=== PATIENT | male | born 1965 | race Caucasian/White ===

== ENCOUNTER → 2016-11-07 | Outpatient (CLI) | payer OTHER ==
[~2016-11-07] MED LIST: ALBUAER19 INH; ASPI81TA28 PO; ATOR-22 PO; CARV25TA2 PO; DILT1TAB50 PO; ENAL1TAB31 PO; FRS/40 PO; GLC/500 PO; HYDR100T12 PO; MAGN400T6 PO; METF500T PO; METH1TAB18 PO; MOME200A INH; POTA-65 PO; SNQ/25 PO
[2016-11-07 17:41] LABS: BLOOD UREA NITROGEN 15 mg/dl (7-18); BUN/CREATININE RATIO 12.8 (10-20); CALCIUM 9.3 mg/dl (8.5-10.1); CARBON DIOXIDE 28 mmol/L (21-32); CHLORIDE 105 mmol/L (98-107); GLUCOSE 209 mg/dl (70-99); SODIUM 141 mmol/L (136-145)
[2016-11-07 17:49] LABS: ESTIMATED AVERAGE GLUCOSE 148 mg/dl; HA1C FLAG Normal (Normal)
[2016-11-07 18:08] LABS: RATIO 16.3 mcg/mg (0-30.0)
== END | disposition home or self-care (01) ==
LOC: C.LABPVFM 15:33
PROVIDERS: ATTEND Family Medicine
DX: E11.40 Type 2 diabetes mellitus with diabetic neuropathy, unspecified (principal); L03.90 Cellulitis, unspecified

== ENCOUNTER → 2017-03-01 | Outpatient (CLI) | payer OTHER ==
[~2017-03-01] MED LIST changes: +GLIP2.5T11 PO; +HYDR-5688 PO; +IBUP-1050 PO; +NYSTCRE11 TOP; +TAMS0.4C38 PO; +VNTHFA/IN INH; +VSNOPS OPB
[2017-03-01 17:49] LABS: ALT/SGPT 37 U/L (12-78); AST/SGOT 17 U/L (15-37); BLOOD UREA NITROGEN 11 mg/dl (7-18); BUN/CREATININE RATIO 10.9 (10-20); CALCIUM 8.6 mg/dl (8.5-10.1); CARBON DIOXIDE 29 mmol/L (21-32); CHLORIDE 106 mmol/L (98-107); CREATININE 0.96 mg/dl (0.60-1.40); GLUCOSE 183 mg/dl (70-99); MAGNESIUM 1.9 mg/dl (1.8-2.4); POTASSIUM 3.8 mmol/L (3.5-5.1); SODIUM 141 mmol/L (136-145)
[2017-03-01 17:52] LABS: CHOLESTEROL/HDL RATIO 2.7
[2017-03-02 06:11] LABS: ESTIMATED AVERAGE GLUCOSE 171 mg/dl; HA1C FLAG Normal (Normal)
== END | disposition home or self-care (01) ==
LOC: C.LABPVFM 11:43
PROVIDERS: ATTEND Family Medicine
DX: E78.5 Hyperlipidemia, unspecified (principal); E11.40 Type 2 diabetes mellitus with diabetic neuropathy, unspecified; I50.32 Chronic diastolic (congestive) heart failure; E83.42 Hypomagnesemia; I11.0 Hypertensive heart disease with heart failure

== ENCOUNTER → 2017-03-15 | Outpatient (CLI) | payer OTHER ==
[~2017-03-15] VITALS: Ht 193 cm; Wt 171.4 kg
[~2017-03-15] MED LIST changes: -TAMS0.4C38 PO
[2017-03-15 12:58] VITALS: BP 189/94; PULSE 86; Ht 193 cm; Wt 171.4 kg
== END | disposition home or self-care (01) ==
LOC: C.NEUR 12:15
PROVIDERS: ATTEND Internal Medicine Pulmonary Disease
DX: G47.30 Sleep apnea, unspecified (principal); E66.01 Morbid (severe) obesity due to excess calories; J45.909 Unspecified asthma, uncomplicated

== ENCOUNTER → 2017-05-21 | Outpatient (CLI) | payer OTHER | END | disposition home or self-care (01) | LOC: C.LABSPEC 17:01 | PROVIDERS: ATTEND Urology | DX: N20.0 Calculus of kidney (principal) ==

== ENCOUNTER 2017-06-11 22:41 | Emergency (ER) | payer OTHER ==
[~2017-06-11] VITALS: Ht 193 cm; Wt 164.7 kg
[2017-06-11 22:50] VITALS: Ht 193 cm; Wt 164.7 kg
[2017-06-11] MEDS ORDERED: SODIUM CHLORIDE 0.9% 500ML 500 ML IV STA (23:46)
[2017-06-11] MEDS ORDERED: SODIUM CHLORIDE 0.9% 1000ML 1,000 ML IV STA (23:46)
--- NOTE | 2017-06-12 00:05 | EMERGENCY ROOM VISIT NOTE ---
History Report prepared by Geri: Beni Ledesma Under the Supervision of: Dr. Jayshree Schmitz M.D. First contact with patient: 23:30 Chief Complaint: LEG PAIN,LEG INJURY Stated Complaint: LT LEG PAIN, FELL OFF ROOF History of Present Illness The patient is a 52 year old male who presents to the Emergency Room with complaints of worsening, upper, left leg pain beginning two days ago. The patient states he was replacing the roof on his trailer, and he fell off the roof. He reports he landed on his left leg and laid there for 30 minutes. The patient notes it started to swell, and it is difficult for him to sit up or apply pressure to it. He states he is able to bend his knee backwards, but it is difficult for him to extend it. The patient reports he has a "black blotch" there. He notes he was evaluated earlier today and had a CAT scan performed by urology for kidney stones. The patient states he has to walk very carefully into the emergency department today as it is painful to extend the left leg. He reports he has a history of diabetes mellitus, and he takes Metformin and glipizide. The patient denies loss of bladder control, loss of bowel movement, and any other pain. Source of History: patient Onset: two days ago Position: leg (upper, left) Timing: worsening Modifying Factors (Worsening): other (pressure) Note: Denies: loss of bladder control, loss of bowel movement, and any other pain Review of Systems See HPI for pertinent positives & negatives. A total of 10 systems reviewed and were otherwise negative. Past Medical & Surgical Medical Problems: (1) Asthma (2) Diabetes (3) HTN (hypertension) (4) Kidney stones (5) Stomach problems Family History Diabetes mellitus Hypertension Social History Smoking Status: Never Smoker Alcohol Use: none Drug Use: none Marital Status: Housing Status: lives alone Occupation Status: employed Current/Historical Medications Scheduled Aspirin (Aspirin Ec), 81 MG PO DAILY Atorvastatin (Lipitor), 20 MG PO HS Carvedilol (Coreg), 25 MG PO BID Diltiazem HCl Coated Beads (Diltiazem HCl ER), 240 MG PO QAM Enalapril Maleate (Vasotec), 20 MG PO BID Furosemide (Lasix), 40 MG PO QAM Hydralazine Hcl (Apresoline), 100 MG PO TID Magnesium Oxide (Mag-Ox), 400 MG PO BID Metformin Hcl (Glucophage), 500 MG PO QAM Metformin Hcl (Glucophage), 1,000 MG PO QPM Methylphenidate Hcl (Methylphenidate Hcl Er), 36 MG PO QAM Mometasone Furoate-Formoterol (Dulera 200/5 Mcg), 2 PUFFS INH BID Potassium Chloride (Potassium Chloride ER), 20 MEQ PO BID Scheduled PRN Doxepin (Sinequan), 25 MG PO HS PRN for Sleep Allergies Coded Allergies: Iodinated Contrast Media (Verified Allergy, Mild, GI SYMPTOMS, 06/12/17) Shellfish Allergy (Verified Allergy, Mild, GI SYMPTOMS, 06/12/17) Bupropion (Verified Allergy, Unknown, Syncope, 06/12/17) Quetiapine (Verified Allergy, Unknown, Sleep Walking, 06/12/17) [place] (Verified Allergy, Unknown, GI SYMPTOMS, 06/12/17) Physical Exam Vital Signs Date Time Temp Pulse Resp B/P (MAP) Pulse Ox O2 Delivery O2 Flow Rate FiO2 06/12/17 01:58 36.7 85 18 142/60 95 06/11/17 22:50 37.3 82 16 188/91 94 Room Air Physical Exam Vital signs reviewed. General: Well-appearing 52 year old male, in no significant distress. Exam is markedly inhibited by body habitus. HEENT: No scleral icterus, PERRLA, neck supple. Atraumatic. Cardiovascular: Regular rate and rhythm, no extra sounds. Pulmonary: Clear to auscultation bilaterally, normal work of breathing. Abdomen: Soft, nontender, nondistended, positive bowel sounds. Musculoskeletal: Atraumatic, no peripheral edema. Tenderness to palpation over the left hamstring with hematoma noted. Tenderness with forward flexion of the left hip. Full ROM of the knee. Neurologic: Patient awake alert and oriented x 3 Skin: Warm, dry, no rash ecchymosis to the posterior left thigh as described above. Medical Decision & Procedures ER Provider Diagnostic Interpretation: Radiology results as stated below per my review and radiologist interpretation: CT LEFT KNEE: Lobular faint high density area within the medial hamstrings measuring around 1.5 x 2.7 x 4.8cm may represent hematoma, cannot exclude possibility of myotendinous injury, tearing. Mild associated surrounding edema, swelling No fracture, joint effusion or dislocation Radiologist: Luke Cohen MD Study ready at 0031 and initial results transmitted at 0118. Laboratory Results Test 06/12/17 00:08 Bedside Hemoglobin 12.9 g/dl (14.0-18.0) Bedside Hematocrit 38 % (42-52) Bedside Sodium 142 mEq/L (135-144) Bedside Potassium 4.1 mEq/L (3.3-5.0) Bedside Chloride 102 mEq/L (101-112) Bedside Total CO2 30 mEq/l (24-31) Anion Gap 15.0 mmol/L (16-25) Bedside Blood Urea Nitrogen 15 mg/dl (7-18) Bedside Creatinine 0.9 mg/dl (0.6-1.3) Bedside Glucose (other) 144 mg/dl (70-99) Bedside Ionized Calcium (Jany) 1.16 mmol/l (1.12-1.32) Laboratory results per my review. Medications Administered Medications (Trade) Dose Ordered Sig/Sriram Route Start Time Stop Time Status Last Admin Dose Admin Acetaminophen/ Hydrocodone Bitart ([place] 5/325mg Home Pack) 1 homepack UD ONCE PO 06/12/17 01:45 06/12/17 01:46 DC 06/12/17 02:01 1 HOMEPACK ED Course 2343: Past medical records reviewed. The patient was evaluated in room C08. A complete history and physical examination was performed. 2346: Ordered Sodium Chloride 1000 ml @ 200 mls/hr IV, Sodium Chloride 500 ml @ 999 mls/hr IV 0145: Ordered Hydrocodone Bitart/Acetaminophen 1 homepack PO 0151: Upon reevaluation, the patient appeared to have improvement of her symptoms. I discussed findings with him. He verbalized agreement of the treatment plan. The patient was discharged home. Medical Decision Differential diagnosis: Etiologies such as fracture, dislocation, neurovascular compromise, compartment syndrome, soft tissue injury, as well as others were entertained. This patient was evaluated and appeared to be in no significant distress. Physical examination reveals a large amount of ecchymosis and tenderness to the left hamstring region. Ecchymosis is largely at the distal end of the hamstring. The patient's symptoms are not consistent with a sciatica necessarily. CT scan of the left lower extremity reveals a likely hematoma and possibly a muscular tear. This would be consistent with the patient's presentation. Patient was given a knee immobilizer. He was given a prescription for Vicodin to be used as needed for significant pain. He will follow-up with orthopedic surgery and return to the emergency department for worsening of symptoms or any medical concerns. Impression Primary Impression: Left hamstring injury Additional Impression: Hematoma of left lower extremity Scribe Attestation The scribe's documentation has been prepared under my direction and personally reviewed by me in its entirety. I confirm that the note above accurately reflects all work, treatment, procedures, and medical decision making performed by me. Departure Information Dispostion Home / Self-Care Referrals Mima Melendrez M.D. Sensiba, Paul R., M.D. Forms HOME CARE DOCUMENTATION FORM, IMPORTANT VISIT INFORMATION Patient Instructions My [facility] Additional Instructions Diagnosis: Left leg hematoma, hamstring injury Wear knee immobilizer while on your feet. It maybe removed to shower. [place] 1-2 tabs every 6 hours as needed for severe pain. Do not drive or take tylenol with this medication. Ibuprofen 600 mg every 6 hours as needed for less severe pain. Ice and elevate. Follow up with Dr Womack of [facility] for reevaluation. Return to the ED for worsening of symptoms or any medical concerns. Problem Qualifiers
[2017-06-12 00:18] LABS: ISTAT CREATININE 0.9 mg/dl (0.6-1.3); ISTAT HEMOGLOBIN 12.9 g/dl (14.0-18.0); ISTAT IONIZED CALCIUM 1.16 mmol/l (1.12-1.32)
[2017-06-12] MEDS ORDERED: NORCO 5/325MG HOME PACK PO ONE (01:45)
[2017-06-12 01:58] VITALS: BP 142/60; PULSE 85; TEMP 36.7; O2SAT 95
--- NOTE | 2017-06-12 07:15 | DIAGNOSTIC IMAGING REPORT ---
L LOWER EXTREMITY WITHOUT CLINICAL HISTORY: 52 years-old Male presenting with L posterior knee pain, hematoma, fall 2 days ago. TECHNIQUE: Multidetector CT of the left knee was performed without the use of intravenous contrast. IV contrast: None. A dose lowering technique was used consistent with the principles of ALARA (as low as reasonably achievable). COMPARISON: None. CT DOSE (mGy.cm): The estimated cumulative dose is 280.75 mGy.cm. FINDINGS: [employer] topogram: Unremarkable. Lobular hyperdense irregular collection within the semimembranous muscle. Small amount of adjacent interfascial fluid. The distal tendon insertion along the posterior medial tibia appears intact. Remainder of the muscles are intact and normal in appearance. Diffuse subcutaneous edema noted above the knee. Knee joint congruent. No effusion. No fracture or malalignment. No significant degenerative change. IMPRESSION: Lobular hyperdense collection within one of the hamstring muscles consistent with intramuscular hematoma. A myotendinous injury or partial tear of the muscle cannot be excluded. However, no complete disruption of the distal tendon. Electronically signed by: Teddy Giles M.D. 06/12/2017 7:14 AM Dictated Date/Time: 06/12/2017 7:10 AM
[2017-06-19] MEDS ORDERED: GLIP2.5T11 PO (11:40)
[2017-06-19] MEDS ORDERED: NYSTCRE11 TOP (11:42)
[2017-06-19] MEDS ORDERED: VNTHFA/IN INH (11:42)
[2017-06-19] MEDS ORDERED: HYDR-5688 PO (11:43)
[2017-06-19] MEDS ORDERED: IBUP-1050 PO (11:44)
[2017-06-19] MEDS ORDERED: VSNOPS OPB (11:45)
== END 2017-06-12 02:00 | disposition home or self-care (01) ==
LOC: C.EDB 22:42 → C.EDC 06-12 02:00
DX: S83.92XA Sprain of unspecified site of left knee, initial encounter (principal); S80.12XA Contusion of left lower leg, initial encounter; W17.89XA Other fall from one level to another, initial encounter; I10 Essential (primary) hypertension; E11.9 Type 2 diabetes mellitus without complications; J45.909 Unspecified asthma, uncomplicated; Z87.442 Personal history of urinary calculi; Z87.19 Personal history of other diseases of the digestive system; Z79.82 Long term (current) use of aspirin; Z79.84 Long term (current) use of oral hypoglycemic drugs; Z79.899 Other long term (current) drug therapy; Z88.8 Allergy status to other drugs, medicaments and biological substances; Z91.018 Allergy to other foods; Z91.041 Radiographic dye allergy status; Z83.3 Family history of diabetes mellitus; Z82.49 Family history of ischemic heart disease and other diseases of the circulatory system

== ENCOUNTER → 2017-06-11 | Outpatient (CLI) | payer OTHER ==
[~2017-06-11] MED LIST changes: -GLIP2.5T11 PO; -HYDR-5688 PO; -IBUP-1050 PO; -NYSTCRE11 TOP; -VNTHFA/IN INH; -VSNOPS OPB
--- NOTE | 2017-06-11 14:57 | DIAGNOSTIC IMAGING REPORT ---
CT OF THE ABDOMEN AND PELVIS WITHOUT CONTRAST CLINICAL HISTORY: Left-sided kidney stone. COMPARISON STUDY: CT of the abdomen and pelvis April 07, 2012 and KUB April 09, 2012. TECHNIQUE: Axial images of the abdomen and pelvis were obtained without IV contrast. Images were reviewed in the axial, sagittal, and coronal planes. A dose lowering technique was utilized adhering to the principles of ALARA. FINDINGS: Note is made of an 8 mm calculus within the lower pole of the left kidney and a 5 mm calculus within the lower pole of the right kidney. There are no ureteral calculi. No hydronephrosis is present. There is a punctate cortical calcification within the midpole the right kidney. There are no bladder calculi. Evaluation of the remainder of the abdomen and pelvis is suboptimal on this unenhanced exam. This study is also compromised by artifact related to body wall contacting the gantry. A 1.6 cm hypodense medial segment hepatic lesion likely reflects a cyst. This is likely benign. Unenhanced images of the spleen, adrenal glands and pancreas are unremarkable. There is no biliary or pancreatic ductal dilatation. No enlarged abdominal or pelvic lymph nodes are identified. There is no evidence for a bowel obstruction. The caliber of the appendix is normal. A radiodensity within the appendix is noted. There is no evidence for acute appendicitis. No suspicious skeletal lesions are present. IMPRESSION: 1. 8 mm left renal calculus and 5 mm right renal calculus. No ureteral calculi. No hydronephrosis. 2. No acute process within the abdomen or pelvis on unenhanced exam. 3. Study compromised by artifact related to body wall contacting the gantry. Electronically signed by: Marques Loera M.D. 06/11/2017 2:56 PM Dictated Date/Time: 06/11/2017 2:47 PM
--- NOTE | 2017-06-11 15:04 | DIAGNOSTIC IMAGING REPORT ---
KUB HISTORY: Z12.5 Encounter for prostate cancer screening [id number] COMPARISON: Abdomen and pelvis CT 06/11/2017. FINDINGS: The bowel gas pattern is unremarkable. There are no dilated loops of small bowel to suggest an obstruction. No change in the 8 mm stone within the lower pole of the left kidney and 5 mm stone within the lower pole the right kidney. No ureteral calculi identified. No radiopaque foreign bodies. No pneumoperitoneum or pneumatosis. IMPRESSION: Stable bilateral nephrolithiasis. Electronically signed by: Ortiz Dodd M.D. 06/11/2017 3:03 PM Dictated Date/Time: 06/11/2017 3:02 PM
== END | disposition home or self-care (01) ==
LOC: C.CTS 14:15
PROVIDERS: ATTEND Urology
DX: Z12.5 Encounter for screening for malignant neoplasm of prostate (principal); N20.0 Calculus of kidney

== ENCOUNTER → 2017-06-28 | Day surgery (SDC) | payer OTHER ==
[2017-06-19 11:46] VITALS: Ht 193 cm; Wt 175.4 kg
--- NOTE | 2017-06-19 12:37 | PAT Medication Instructions ---
"Service Date Jun 19, 2017. Current Home Medication List Albuterol Hfa (Ventolin Hfa), 2-4 PUFFS INH Q4H PRN for RN Aspirin (Aspirin Ec), 81 MG PO QAM Atorvastatin (Lipitor), 20 MG PO HS Carvedilol (Coreg), 25 MG PO BID Diltiazem HCl Coated Beads (Diltiazem HCl ER), 240 MG PO QAM Doxepin (Sinequan), 50 MG PO HS PRN for Sleep Enalapril Maleate (Vasotec), 20 MG PO BID Furosemide (Lasix), 40 MG PO QAM Glipizide (Glipizide Er), 1 TAB PO QAM Hydralazine Hcl (Apresoline), 100 MG PO TID Hydrocodone/Acetaminophen 5MG/325MG ([place] 5MG/325MG), 1 TABLET PO Q6H PRN for N Ibuprofen (Advil), 200-600 MG PO PRN Magnesium Oxide (Mag-Ox), 400 MG PO BID Metformin Hcl (Glucophage), 500 MG PO QAM Metformin Hcl (Glucophage), 1,000 MG PO QPM Methylphenidate Hcl (Methylphenidate Hcl Er), 36 MG PO QAM Nystatin/Triamcinolone (Mycogen || ), 1 DOSE TOP BID PRN for RN Potassium Chloride (Potassium Chloride ER), 20 MEQ PO BID Tetrahydrozoline Hcl (Ophth) (Visine), 1 DOSE OPB PRN Medication Instructions For Your Scheduled Surgery - Hold the following medications per your surgeon's instructions: Aspirin (Aspirin Ec), 81 MG PO QAM Ibuprofen (Advil), 200-600 MG PO PRN - Hold the following medications 24 hours prior to surgery: Enalapril Maleate (Vasotec), 20 MG PO BID Nystatin/Triamcinolone (Mycogen || ), 1 DOSE TOP BID PRN for RN - Hold the following medications 48 hours prior to surgery: Metformin Hcl (Glucophage), 500 MG PO QAM Metformin Hcl (Glucophage), 1,000 MG PO QPM - Hold the following medications the morning of surgery: Magnesium Oxide (Mag-Ox), 400 MG PO BID Furosemide (Lasix), 40 MG PO QAM Glipizide (Glipizide Er), 1 TAB PO QAM Enalapril Maleate (Vasotec), 20 MG PO BID Methylphenidate Hcl (Methylphenidate Hcl Er), 36 MG PO QAM Potassium Chloride (Potassium Chloride ER), 20 MEQ PO BID - Take the following medications the morning of surgery with a sip of water: Hydralazine Hcl (Apresoline), 100 MG PO TID Carvedilol (Coreg), 25 MG PO BID Diltiazem HCl Coated Beads (Diltiazem HCl ER), 240 MG PO QAM Hydrocodone/Acetaminophen 5MG/325MG ([place] 5MG/325MG), 1 TABLET PO Q6H PRN (can take up to four hours before surgery if needed) Tetrahydrozoline Hcl (Ophth) (Visine), 1 DOSE OPB PRN (if needed) Albuterol Hfa (Ventolin Hfa), 2-4 PUFFS INH Q4H PRN for RN (if needed, and bring with you on the day of surgery) - Take the following medications as scheduled the night before surgery: Magnesium Oxide (Mag-Ox), 400 MG PO BID Hydralazine Hcl (Apresoline), 100 MG PO TID Carvedilol (Coreg), 25 MG PO BID Doxepin (Sinequan), 50 MG PO HS PRN for Sleep Tetrahydrozoline Hcl (Ophth) (Visine), 1 DOSE OPB PRN (if needed) Atorvastatin (Lipitor), 20 MG PO HS Albuterol Hfa (Ventolin Hfa), 2-4 PUFFS INH Q4H PRN for RN (if needed) Potassium Chloride (Potassium Chloride ER), 20 MEQ PO BID If you have any questions please call us at [phone] or [phone] or [phone]"
[2017-06-19 12:38] LABS: MANUAL MICROSCOPIC REQUIRED? NO; REVIEW REQ? NO; URINE APPEARANCE CLEAR (CLEAR); URINE BILIRUBIN NEG (NEG); URINE COLOR YELLOW; URINE NITRITE NEG (NEG); URINE SPECIFIC GRAVITY 1.015 (1.000-1.030); UROBILINOGEN NEG (NEG)
[2017-06-19 12:46] LABS: HEMATOCRIT 39.9 % (42-52); MEAN CELL VOLUME 85.8 fL (80-100); MEAN CORPUSCULAR HEMOGLOBIN 28.4 pg (25-34); MEAN CORPUSCULAR HGB CONC 33.1 g/dl (32-36); PLATELET COUNT 177 K/uL (130-400); RED BLOOD COUNT 4.65 M/uL (4.7-6.1); WHITE BLOOD COUNT 6.04 K/uL (4.8-10.8)
--- NOTE | 2017-06-19 13:07 | DIAGNOSTIC IMAGING REPORT ---
TWO VIEW CHEST CLINICAL HISTORY: Preoperative examination. FINDINGS: PA and lateral chest radiographs are compared to study dated 04/09/2012. The heart is normal for projection and there is mild atherosclerotic calcification of the thoracic aorta. There is mild left basilar atelectasis. The lungs and pleural spaces are otherwise clear. There is no pneumothorax. The bony thorax appears intact. IMPRESSION: No active disease in the chest. Electronically signed by: Wade Wayne M.D. 06/19/2017 1:06 PM Dictated Date/Time: 06/19/2017 1:05 PM
[~2017-06-28] VITALS: Ht 193 cm; Wt 175.4 kg
[~2017-06-28] MED LIST changes: -ALBUAER19 INH; +ATROPINE SULFATE 0.1 MG/ML 5ML SYR IV PRN; +CIPROFLOXACIN 400MG / D5W IV SCH; +DEXAMETHASONE SOD INJ 4 MG/ML VIAL IV PRN; +DEXAMETHASONE SOD INJ 4 MG/ML VIAL ONE; +EpHEDrine SULFATE INJ 50 MG/ML AMP IV PRN; +FENTANYL CITRATE INJ 50 MCG/1 ML 2 ML VIAL IV PRN; +FENTANYL CITRATE INJ 50 MCG/1 ML 2 ML VIAL ONE; +GLIP2.5T11 PO; +HYDR-5688 PO; +IBUP-1050 PO; +KETOROLAC TROMETHAMINE 30 MG/ML VIAL IV. PRN; +LABETALOL HCL IV 5 MG/ML 20ML IV PRN; +LACTATED RINGER'S 1000ML 1,000 ML IV SCH; +LIDOCAINE HCL 2% 2 ML VIAL (20MG/ML) ONE; +METOCLOPRAMIDE HCL INJ 5 MG/ML 2 ML VIAL IV PRN; +MIDAZOLAM HCL 1 MG/ML 2ML VIAL ONE; -MOME200A INH; +MoRPHine SULFATE 10 MG/ML CARP/VIAL IV PRN; +NYSTCRE11 TOP; +ONDANSETRON INJ 2 MG/ML 2 ML VIAL IV PRN; +ONDANSETRON INJ 2 MG/ML 2 ML VIAL ONE; +PHENYLEPHRINE 100MCG/ML 5ML SYR IV PRN; +PROPOFOL IV EMULSION 10 MG/ML 20 ML VIAL IV ONE; +TAMS0.4C38 PO; +VNTHFA/IN INH; +VSNOPS OPB
--- NOTE | 2017-06-28 10:13 | DIAGNOSTIC IMAGING REPORT ---
KUB HISTORY: N20.0 Kidney stone on left side TO BE DONE EITHER THE NIGHT BEFORE COMPARISON: KUB 06/11/2017. FINDINGS: The bowel gas pattern is unremarkable. There are no dilated loops of small bowel to suggest an obstruction. Stable 8 mm stone within the lower pole of the left kidney. No ureteral calculi. The 5 mm stone within the lower pole of the right kidney is partially obscured by overlying bowel gas. No pneumoperitoneum or pneumatosis. IMPRESSION: Stable bilateral nephrolithiasis. No ureteral calculi. Electronically signed by: Ortiz Dodd M.D. 06/28/2017 10:12 AM Dictated Date/Time: 06/28/2017 10:10 AM
--- NOTE | 2017-06-28 12:03 | History & Physical Bridge - SC ---
H&P Re-Evaluation Bridge Note: I have examined the patient, reviewed the History & Physical and in the interval since the performance of the History & Physical I have noted the following changes of clinical significance: Case cancelled due to patient on aspirin. Fluoroscopy completed to visualize stone to determine if ESWL possible. Was able to visualize stone with fluoroscopy but was difficult due to bowel gas and habitus.
[2017-06-28 12:14] VITALS: TEMP 36.8
[2017-06-28 12:24] VITALS: BP 161/90; PULSE 65; O2SAT 97
== END | disposition home or self-care (01) ==
LOC: X.SURG 10:27
PROVIDERS: ATTEND Urology
DX: Z53.09 Procedure and treatment not carried out because of other contraindication (principal); N13.30 Unspecified hydronephrosis; N20.0 Calculus of kidney; M19.90 Unspecified osteoarthritis, unspecified site; J45.909 Unspecified asthma, uncomplicated; F90.9 Attention-deficit hyperactivity disorder, unspecified type; E11.65 Type 2 diabetes mellitus with hyperglycemia; E11.40 Type 2 diabetes mellitus with diabetic neuropathy, unspecified; E78.5 Hyperlipidemia, unspecified; I10 Essential (primary) hypertension; E83.42 Hypomagnesemia; E66.01 Morbid (severe) obesity due to excess calories; I25.2 Old myocardial infarction; Z86.73 Personal history of transient ischemic attack (TIA), and cerebral infarction without residual deficits; Z80.8 Family history of malignant neoplasm of other organs or systems; Z79.82 Long term (current) use of aspirin

== ENCOUNTER → 2017-07-05 | Day surgery (SDC) | payer OTHER ==
[2017-07-02 13:27] VITALS: Ht 193 cm; Wt 175.4 kg
--- NOTE | 2017-07-04 17:38 | DIAGNOSTIC IMAGING REPORT ---
KUB CLINICAL HISTORY: N20.0 Nephrolithiasis COMPARISON STUDY: 06/28/2017 FINDINGS: There is no pathologic bowel dilatation. There is a 9 mm lower pole left renal calculus. No ureteral calculi are visualized on conventional radiographic imaging. The patient's reported right renal calculus is not visualized the current study. IMPRESSION: 1. 9 mm lower pole left renal calculus 2. The patient's previously reported right renal calculus is obscured by overlying bowel and fecal material 3. No evidence of pathologic bowel dilatation Electronically signed by: Jose F Arroyo M.D. 07/04/2017 5:37 PM Dictated Date/Time: 07/04/2017 5:33 PM
[~2017-07-05] VITALS: Ht 193 cm; Wt 175.4 kg
[~2017-07-05] MED LIST changes: +CIPROFLOXACIN / D5W 400 MG IV SCH; -CIPROFLOXACIN 400MG / D5W IV SCH; -DEXAMETHASONE SOD INJ 4 MG/ML VIAL IV PRN; +EpHEDrine SULFATE 50MG/5ML SYR ONE; -LABETALOL HCL IV 5 MG/ML 20ML IV PRN; -METOCLOPRAMIDE HCL INJ 5 MG/ML 2 ML VIAL IV PRN; -MoRPHine SULFATE 10 MG/ML CARP/VIAL IV PRN; +OXYCODONE/ACETAMINOPHEN 5-325 TAB PO PRN; -PHENYLEPHRINE 100MCG/ML 5ML SYR IV PRN; +SUCCINYLCHOLINE CHLORIDE 20 MG/ML 10 ML VIAL IV ONE
--- NOTE | 2017-07-05 06:58 | History & Physical Bridge Note ---
H&P Re-Evaluation Bridge Note: I have examined the patient, reviewed the History & Physical and in the interval since the performance of the History & Physical I have noted the following changes of clinical significance: No changes noted, left side for ESWL
--- NOTE | 2017-07-05 07:56 | Discharge Instructions ---
Discharge Instructions Date of Service Jul 05, 2017. Admission Reason for Admission: Stones Discharge Discharge Diagnosis / Problem: L renal stone s/p ESWL Discharge Goals Goal(s): Improve function, Improve disease control, Therapeutic intervention Activity Recommendations Activity Limitations: as noted below Lifting Limitations: no more than 25 pounds, gradually increase as tolerated Exercise/Sports Limitations: rest today, gradually increase as tolerated May Resume Sexual Activity: when tolerated Shower/Bathe: no limitations Driving or Machine Use: resume 1 day after discharge . Instructions / Follow-Up Instructions / Follow-Up Follow-up in office as planned with KUB Xray before visit Discharge Diet Recommended Diet: Regular Diet (good fluid intake) Procedures Procedures Performed: Left Extracorporeal Shock Wave Lithotripsy - Renal Pending Studies Studies pending at discharge: no Medical Emergencies . Who to Call and When: Medical Emergencies: If at any time you feel your situation is an emergency, please call 911 immediately. . Non-Emergent Contact Non-Emergency issues call your: Urologist Call Non-Emergent contact if: you have a fever, temperature is above 101, your pain is not controlled, your pain is worsening, your pain is unusual for you, your pain is concerning you, you have any medication questions . . "Provider Documentation" section prepared by Efren Cline. . VTE Core Measure Inpt VTE Proph given/why not?: SCD's [place] Drug Monitoring Program Search Results: patient reviewed within database, see additional documentation (last narcotic Rx in Nov 2016)
--- NOTE | 2017-07-05 07:58 | [facility] Post Operative Brief Note ---
Immediate Operative Summary Operative Date Jul 05, 2017. Pre-Operative Diagnosis Left Renal Stone Post-Operative Diagnosis Same as pre-op Procedure(s) Performed Left Extracorporeal Shock Wave Lithotripsy - Renal Surgeon Dr. Kristi Cline [place] Technician Surgeon(s) None Estimated Blood Loss 0 mL Findings Good stone fragmentation on fluoro Specimens None Drains NA Anesthesia GAET Complication(s) None Disposition Recovery Room / PACU
--- NOTE | 2017-07-05 08:24 | OPERATIVE REPORT ---
DATE OF OPERATION: 07/05/2017 PREOPERATIVE DIAGNOSIS: Left 8 mm kidney stone. POSTOPERATIVE DIAGNOSIS: Left 8 mm kidney stone. PROCEDURE: Left-sided renal extracorporeal shockwave lithotripsy. SURGEON: Efren Cline MD. PRINTING SALES REPRESENTATIVE: None. ANESTHESIA: General anesthesia with endotracheal intubation due to body habitus. COMPLICATIONS: None. FINDINGS: Good stone fragmentation on fluoroscopy intraoperatively. DETAILS OF PROCEDURE: The patient was brought to the litho suite. He was correctly identified and the stone was visualized on his most recent x-rays. After the correct time out was performed the patient was positioned over the therapy head. An adequate level of anesthesia was administered. The extracorporeal shockwave lithotripsy treatment was then commenced. Please see the [facility] Management sheet for complete treatment summary. After completion of the procedure the patient was taken to the recovery room in stable condition. I attest to the content of the Intraoperative Record and any orders documented therein. Any exception s are noted below.
[2017-07-05 09:05] VITALS: TEMP 36.7
[2017-07-05 09:34] VITALS: BP 155/82; PULSE 56; O2SAT 96
--- NOTE | 2017-07-05 09:36 | Anesthesia Progress Nt - [facility] ---
Anesthesia Post Op Note Date & Time Jul 05, 2017 at 09:35 Vital Signs Pain Intensity: 0 Vital Signs Past 12 Hours Date Time Temp Pulse Resp B/P (MAP) Pulse Ox O2 Delivery O2 Flow Rate FiO2 07/05/17 09:05 36.7 58 16 145/77 (99) 95 Room Air 07/05/17 08:40 51 Room Air 07/05/17 07:54 36.3 61 20 91/43 96 Diffusion Mask 5 07/05/17 06:41 37.0 62 22 159/93 (115) 94 Room Air Notes Mental Status: alert / awake / arousable, participated in evaluation Pt Amnestic to Procedure: Yes Nausea / Vomiting: adequately controlled Pain: adequately controlled Airway Patency, RR, SpO2: stable & adequate BP & HR: stable & adequate Hydration State: stable & adequate Anesthetic Complications: no major complications apparent Awake, doing well. VSS. Ready for d/c
== END | disposition home or self-care (01) ==
LOC: X.SURG 05:56
PROVIDERS: ATTEND Urology
DX: N20.0 Calculus of kidney (principal); I11.0 Hypertensive heart disease with heart failure; I50.32 Chronic diastolic (congestive) heart failure; E11.40 Type 2 diabetes mellitus with diabetic neuropathy, unspecified; E78.5 Hyperlipidemia, unspecified; J45.909 Unspecified asthma, uncomplicated; G47.30 Sleep apnea, unspecified; E66.01 Morbid (severe) obesity due to excess calories; F80.9 Developmental disorder of speech and language, unspecified; Z87.891 Personal history of nicotine dependence; Z79.82 Long term (current) use of aspirin; Z79.84 Long term (current) use of oral hypoglycemic drugs; Z79.899 Other long term (current) drug therapy

== ENCOUNTER → 2017-11-26 | Outpatient (CLI) | payer OTHER ==
[~2017-11-26] MED LIST changes: -ATROPINE SULFATE 0.1 MG/ML 5ML SYR IV PRN; -CIPROFLOXACIN / D5W 400 MG IV SCH; -DEXAMETHASONE SOD INJ 4 MG/ML VIAL ONE; -EpHEDrine SULFATE 50MG/5ML SYR ONE; -EpHEDrine SULFATE INJ 50 MG/ML AMP IV PRN; -FENTANYL CITRATE INJ 50 MCG/1 ML 2 ML VIAL IV PRN; -FENTANYL CITRATE INJ 50 MCG/1 ML 2 ML VIAL ONE; -KETOROLAC TROMETHAMINE 30 MG/ML VIAL IV. PRN; -LACTATED RINGER'S 1000ML 1,000 ML IV SCH; -LIDOCAINE HCL 2% 2 ML VIAL (20MG/ML) ONE; -MIDAZOLAM HCL 1 MG/ML 2ML VIAL ONE; -ONDANSETRON INJ 2 MG/ML 2 ML VIAL IV PRN; -ONDANSETRON INJ 2 MG/ML 2 ML VIAL ONE; -OXYCODONE/ACETAMINOPHEN 5-325 TAB PO PRN; -PROPOFOL IV EMULSION 10 MG/ML 20 ML VIAL IV ONE; -SUCCINYLCHOLINE CHLORIDE 20 MG/ML 10 ML VIAL IV ONE; -TAMS0.4C38 PO
== END | disposition home or self-care (01) ==
LOC: C.LABPVFM 13:16
PROVIDERS: ATTEND Internal Medicine Cardiovascular Disease
DX: I10 Essential (primary) hypertension (principal); I50.32 Chronic diastolic (congestive) heart failure; E83.42 Hypomagnesemia

== ENCOUNTER → 2017-12-26 | Outpatient (CLI) | payer OTHER ==
[2017-12-26 13:13] LABS: ALBUMIN 3.6 gm/dl (3.4-5.0); ALT/SGPT 39 U/L (12-78); AST/SGOT 17 U/L (15-37); BLOOD UREA NITROGEN 15 mg/dl (7-18); CALCIUM 8.9 mg/dl (8.5-10.1); CARBON DIOXIDE 26 mmol/L (21-32); CHOLESTEROL 92 mg/dl (0-200); GLUCOSE 172 mg/dl (70-99); POTASSIUM 3.8 mmol/L (3.5-5.1); SODIUM 140 mmol/L (136-145)
[2017-12-26 13:16] LABS: ALKALINE PHOSPHATASE 86 U/L (45-117); LDL CHOLESTEROL CALCULATED 35 mg/dl
== END | disposition home or self-care (01) ==
LOC: C.LABPVFM 09:59
PROVIDERS: ATTEND Family Medicine
DX: N13.30 Unspecified hydronephrosis (principal); F90.9 Attention-deficit hyperactivity disorder, unspecified type; I10 Essential (primary) hypertension; I50.32 Chronic diastolic (congestive) heart failure; E78.5 Hyperlipidemia, unspecified; E11.40 Type 2 diabetes mellitus with diabetic neuropathy, unspecified

== ENCOUNTER 2018-04-20 21:15 | Emergency (ER) | payer OTHER ==
[~2018-04-20] VITALS: Ht 193 cm; Wt 163.5 kg
[2018-04-20 21:18] VITALS: TEMP 37.3; Ht 193 cm; Wt 163.5 kg
[2018-04-20] MEDS ORDERED: CEFTRIAXONE SOD INJ 1 GM ADDVIAL IV STA (21:55)
[2018-04-20] MEDS ORDERED: KETOROLAC TROMETHAMINE 30 MG/ML VIAL IV STA (21:55)
[2018-04-20] MEDS ORDERED: DIPHTHERIA/TETANUS/PERTUSSIS 0.5 ML SYR/VIAL IM. ONE (22:00)
[2018-04-20 22:31] LABS: BASO % 0.2 %; BASO ABS # 0.02 K/uL (0-0.2); EOS % 2.8 %; EOS ABS # 0.24 K/uL (0-0.5); HEMATOCRIT 41.8 % (42-52); HEMOGLOBIN 13.8 g/dL (14.0-18.0); IG# 0.02 K/uL (0.00-0.02); LYMPH % 20.7 %; LYMPH ABS # 1.76 K/uL (1.2-3.4); MEAN CELL VOLUME 86.2 fL (80-100); MEAN CORPUSCULAR HEMOGLOBIN 28.5 pg (25-34); MEAN PLATELET VOLUME 10.1 fL (7.4-10.4); MONO % 5.5 %; MONO ABS # 0.47 K/uL (0.11-0.59); NEUT % 70.6 %; NEUT ABS # 6.01 K/uL (1.4-6.5); PLATELET COUNT 172 K/uL (130-400); RED CELL DISTRIBUTION WIDTH CV 14.4 % (11.5-14.5); RED CELL DISTRIBUTION WIDTH SD 44.7 fL (36.4-46.3); WHITE BLOOD COUNT 8.52 K/uL (4.8-10.8)
[2018-04-20 22:48] LABS: CALCIUM 8.6 mg/dl (8.5-10.1); CREATININE 1.08 mg/dl (0.60-1.40); POTASSIUM 3.5 mmol/L (3.5-5.1)
--- NOTE | 2018-04-20 22:53 | DIAGNOSTIC IMAGING REPORT ---
LEFT BUTTOCK ULTRASOUND CLINICAL HISTORY: Left buttock infection, ? abscess. COMPARISON STUDY: No previous studies for comparison. FINDINGS: Sonography of the superior left buttock at site of swelling demonstrates a tiny 0.8 x 0.5 x 0.7 cm subcutaneous hypoechoic focus. This contains no color flow. No additional fluid collections are present. There is an apparent tract which extends from this collection to the skin. IMPRESSION: 8 mm subcutaneous hypoechoic fluid collection of the left buttock with tract that extends from the skin to this fluid collection. This may reflect a tiny abscess or hematoma. Electronically signed by: Marques Loera M.D. 04/20/2018 10:52 PM Dictated Date/Time: 04/20/2018 10:50 PM
[2018-04-20] MEDS ORDERED: SULF800T23 PO (23:05)
[2018-04-20] MEDS ORDERED: CEPH500C2 PO (23:05)
[2018-04-20 23:12] VITALS: BP 176/68; PULSE 78; O2SAT 95
[2018-04-20] MEDS ORDERED: CEPHALEXIN 500MG HOME PACK 1 EA BTL PO ONE (23:15)
[2018-04-20] MEDS ORDERED: SEPTRA DS HOME PACK 1 EA VIAL PO ONE (23:15)
--- NOTE | 2018-04-20 23:22 | EMERGENCY ROOM VISIT NOTE ---
History First contact with patient: 21:50 Chief Complaint: BITE Stated Complaint: BIT BY TIC OR SPIDER History of Present Illness The patient is a 53 year old male who presents to the Emergency Room with complaints of insect bite to his left butt cheek for the past day is gotten more painful and sore for him. He is unsure what bit him. Patient does not check his blood sugars. Patient denies chest pain, dyspnea, fever, chills, nausea, vomiting, abdominal pain, drainage from the site. Tetanus is not current. Patient's reaction to penicillin as a mild rash. He has taken Keflex without difficulties in the past. Review of Systems An 10 system review of systems was completed with positives and pertinent negatives listed in the HPI. Past Medical/Surgical History Medical Problems: (1) Asthma (2) Diabetes (3) HTN (hypertension) (4) Kidney stones (5) Stomach problems Family History Diabetes mellitus Hypertension Social History Smoking Status: Never Smoker Alcohol Use: none Drug Use: none Marital Status: Housing Status: lives alone Occupation Status: employed Current/Historical Medications Scheduled Aspirin (Aspirin Ec), 81 MG PO QAM Atorvastatin (Lipitor), 20 MG PO HS Carvedilol (Coreg), 25 MG PO BID Cephalexin Monohydrate (Keflex), 500 MG PO QID Diltiazem HCl Coated Beads (Diltiazem HCl ER), 240 MG PO QAM Enalapril Maleate (Vasotec), 20 MG PO BID Glipizide (Glipizide Er), 2.5 MG PO QAM Hydralazine Hcl (Apresoline), 100 MG PO TID Ibuprofen (Advil), 200-600 MG PO PRN Magnesium Oxide (Mag-Ox), 400 MG PO BID Metformin Hcl (Glucophage), 500 MG PO QAM Metformin Hcl (Glucophage), 1,000 MG PO QPM Methylphenidate Hcl (Methylphenidate Hcl Er), 36 MG PO QAM Potassium Chloride (Potassium Chloride ER), 20 MEQ PO BID Sulfa/Trimethoprim (Bactrim Ds 800MG/160MG), 1 TAB PO BID Tetrahydrozoline Hcl (Ophth) (Visine), 1 DROP OPB PRN Scheduled PRN Albuterol Hfa (Ventolin Hfa), 2-4 PUFFS INH Q4H PRN for SOB/Wheezing Furosemide (Lasix), 40 MG PO QAM PRN for water retention Physical Exam Vital Signs Date Time Temp Pulse Resp B/P (MAP) Pulse Ox O2 Delivery O2 Flow Rate FiO2 04/20/18 23:12 78 176/68 95 04/20/18 23:11 78 20 176/68 95 Room Air 04/20/18 21:18 37.3 83 18 200/81 93 Room Air Physical Exam VITALS: Vitals are noted on the nurse's note and reviewed by myself. Vital signs hypertensive. GENERAL: White male, in no acute distress, nondiaphoretic, well-developed well- nourished. SKIN: Left buttock with insect bite with surrounding erythema 5 cm x 4 cm with induration without palpable abscess. No lymphangitis. The rest of the skin was without rashes, erythema, edema, or bruising. There is no tenting of the skin. Capillary reflex less than 2 seconds. HEAD: Normocephalic atraumatic. EARS: External auditory canals clear EYES: Pupils equal round and reactive to light and accommodation. Conjunctivae without injection, sclerae without icterus. Extraocular movements intact. NOSE: Patent, turbinates without inflammation or discharge. MOUTH: Mucous membranes moist. Pharynx without erythema or exudate. Uvula midline. Airway patent. Tongue does not deviate. NECK: Supple without nuchal rigidity. No lymphadenopathy. No thyromegaly. Cervical spine is nontender. No JVD. HEART: Regular rate and rhythm without murmurs gallops or rubs. LUNGS: Clear to auscultation bilaterally without wheezes, rales or rhonchi. No retractions or accessory muscle use. ABDOMEN: Positive bowel sounds x 4. Normal tympanic percussion. Soft, protuberant, obese, nontender, without masses or organomegaly. Fox sign negative. No guarding or rebound tenderness. No CVA tenderness Buttock exam: Left buttock with insect bite with surrounding erythema 5 cm x 4 cm with induration without palpable abscess. No lymphangitis. MUSCULOSKELETAL: No muscle atrophy, erythema, noted. NEURO: Patient was alert and oriented to person place and time. Normal sensation to light and sharp touch. No focal neurological deficits. Medical Decision & Procedures Laboratory Results 04/20/18 22:20 Red Blood Count 4.85, Mean Corpuscular Volume 86.2, Mean Corpuscular Hemoglobin 28.5, Mean Corpuscular Hemoglobin Concent 33.0, Mean Platelet Volume 10.1, Neutrophils (%) (Auto) 70.6, Lymphocytes (%) (Auto) 20.7, Monocytes (%) (Auto) 5.5, Eosinophils (%) (Auto) 2.8, Basophils (%) (Auto) 0.2, Neutrophils # (Auto) 6.01, Lymphocytes # (Auto) 1.76, Monocytes # (Auto) 0.47, Eosinophils # (Auto) 0.24, Basophils # (Auto) 0.02 04/20/18 22:20 Test 04/20/18 22:20 White Blood Count 8.52 K/uL (4.8-10.8) Red Blood Count 4.85 M/uL (4.7-6.1) Hemoglobin 13.8 g/dL (14.0-18.0) Hematocrit 41.8 % (42-52) Mean Corpuscular Volume 86.2 fL (80-100) Mean Corpuscular Hemoglobin 28.5 pg (25-34) Mean Corpuscular Hemoglobin Concent 33.0 g/dl (32-36) Platelet Count 172 K/uL (130-400) Mean Platelet Volume 10.1 fL (7.4-10.4) Neutrophils (%) (Auto) 70.6 % Lymphocytes (%) (Auto) 20.7 % Monocytes (%) (Auto) 5.5 % Eosinophils (%) (Auto) 2.8 % Basophils (%) (Auto) 0.2 % Neutrophils # (Auto) 6.01 K/uL (1.4-6.5) Lymphocytes # (Auto) 1.76 K/uL (1.2-3.4) Monocytes # (Auto) 0.47 K/uL (0.11-0.59) Eosinophils # (Auto) 0.24 K/uL (0-0.5) Basophils # (Auto) 0.02 K/uL (0-0.2) RDW Standard Deviation 44.7 fL (36.4-46.3) RDW Coefficient of Variation 14.4 % (11.5-14.5) Immature Granulocyte % (Auto) 0.2 % Immature Granulocyte # (Auto) 0.02 K/uL (0.00-0.02) Anion Gap 8.0 mmol/L (3-11) Est Creatinine Clear Calc Drug Dose 134.4 ml/min Estimated GFR () 91.6 Estimated GFR (Non- 79.0 BUN/Creatinine Ratio 13.3 (10-20) Calcium Level 8.6 mg/dl (8.5-10.1) Medications Administered Medications (Trade) Dose Ordered Sig/Sriram Route Start Time Stop Time Status Last Admin Dose Admin Ceftriaxone Sodium (Rocephin Inj) 1 gm NOW STAT IV 04/20/18 21:55 04/20/18 21:57 DC 04/20/18 22:51 1 GM Ketorolac Tromethamine (Toradol Inj) 10 mg NOW STAT IV 04/20/18 21:55 04/20/18 21:57 DC 04/20/18 22:52 10 MG Diphtheria/ Pertussis/Tetanus Vacc (Adacel Inj) 0.5 ml ONCE ONCE IM. 04/20/18 22:00 04/20/18 22:01 DC 04/20/18 22:53 0.5 ML ED Course Prior records reviewed and summarized as above. Triage Nursing notes reviewed. The patient's history was concerning for swelling and redness of the skin. Differential diagnosis: Etiologies such as cellulitis, abscess, MRSA infection, DVT, necrotizing fasciitis, dermatitis, drug eruption, as well as others were entertained.. Physical examination: As above ER treatment provided: Rocephin, Toradol, home pack Keflex and Bactrim On reassessment the patient felt better. Diagnostics interpreted by me: The labs revealed hyperglycemia without DKA. No leukocytosis Imaging studies: LEFT BUTTOCK ULTRASOUND CLINICAL HISTORY: Left buttock infection, ? abscess. COMPARISON STUDY: No previous studies for comparison. FINDINGS: Sonography of the superior left buttock at site of swelling demonstrates a tiny 0.8 x 0.5 x 0.7 cm subcutaneous hypoechoic focus. This contains no color flow. No additional fluid collections are present. There is an apparent tract which extends from this collection to the skin. IMPRESSION: 8 mm subcutaneous hypoechoic fluid collection of the left buttock with tract that extends from the skin to this fluid collection. This may reflect a tiny abscess or hematoma. Electronically signed by: Marques Loera M.D. This appears to be Cellulitis with possibly developing abscess.patient was started on antibiotics. Patient was counseled on his blood pressure and blood sugar. He was advised to take medications as directed and to sit on a donut cushion to help subside some of the pain. He is advised to return to the ER immediately for fevers, spreading infection, vomiting, pain, worsening signs or symptoms or as needed. He was advised to follow-up with family care in 2 days. By the evaluation outlined above emergent etiologies such as necrotizing fasciitis, DVT, as well as others were deemed relatively unlikely. The pt informed about the findings as listed above. All questions were answered and pleased with the treatment. Return instructions were outlined and the patient was discharged in stable condition. Outpatient prescription management: Keflex, Bactrim Referral: The patient was referred back to primary care physician for follow-up in 2 to 3 days for a recheck of the current condition. Case reviewed with my attending The chart was completed utilizing [employer] voice recognition software. Grammatical errors, random word insertions, pronoun errors, and incomplete sentences are an occassional consequence of this system due to software limitations, ambient noise, and hardware issues. Any formal questions or concerns about the content, text, or information contained within the body of this dictation should be directly addressed to the physician assistant floor covering printer for clarification. Medical Decision As above Medication Reconcilliation Current Medication List: was personally reviewed by me Blood Pressure Screening Patient's blood pressure: Elevated blood pressure Blood pressure disposition: Referred to PCP Impression Primary Impression: Hyperglycemia due to type 2 diabetes mellitus Additional Impressions: Infected insect bite of buttock Anemia Departure Information Dispostion Home / Self-Care Condition GOOD Prescriptions Sulfa/Trimethoprim (Bactrim Ds 800MG/160MG) Tab 1 TAB PO BID for 9 Days, #18 TAB Prov: Glo Rose PA-C 04/20/18 Cephalexin Monohydrate (KEFLEX) 500 Mg Cap 500 MG PO QID for 9 Days, #36 CAP Prov: Glo Rose PA-C 04/20/18 Forms HOME CARE DOCUMENTATION FORM, Work Instructions, Return To Work: 2 days IMPORTANT VISIT INFORMATION Patient Instructions My [facility], ED Sting Bite Insect Infec Additional Instructions Your blood pressure is elevated today. Follow-up with family care doctor for this. Monitor your blood sugar. It was high today. Cephalexin(Keflex) 500mg: Take one pill four times daily for 10 days for your skin infection. All antibiotics can cause diarrhea. If this occurs and you feel worse or it does not resolve in 1-2 days follow up with your doctor or return to the Emergency Department as this could be signs of serious underlying problems. Any medication can cause an allergic reaction, stop the pills immediately and return to the ER for rash, hives, breathing difficulties, or swelling. Trimethoprim-Sulfamethoxazole(Bactrim DS): Take one pill twice daily for 10 days for your skin infection. All antibiotics can cause diarrhea. If this occurs and you feel worse or it does not resolve in 1-2 days follow up with your doctor or return to the Emergency Department as this could be signs of serious underlying problems. Any medication can cause an allergic reaction, stop the pills immediately and return to the ER for rash, hives, breathing difficulties, or swelling. Ibuprofen(Motrin, Advil) may be used for fever or pain. Use 600mg every six hours as needed. Take with food. Avoid using more than 2400mg in a 24 hour period. Do not use 2400mg per day for more than three consecutive days without physician direction. Prolonged inappropriate use can lead to stomach upset or ulcers. (AND/OR) Acetaminophen(Tylenol) may be used for fever or pain. Use 1000mg every six hours as needed. Avoid using more than 3000mg in a 24 hour period. Warm compresses to the affected area 4 times daily for 15-20 minutes. Rest and drink plenty of fluids. Continue current medications. Return to the ER for severe pain, persistent fevers, spreading redness, or any worsening of your condition. Follow up with your primary physician within 2-3 days for a recheck of the current condition. Work Instructions Return To Work: 2 days Problem Qualifiers Primary Impression: Hyperglycemia due to type 2 diabetes mellitus Diabetes mellitus outplacement consultant insulin use: with outplacement consultant use Qualified Codes: E11.65 - Type 2 diabetes mellitus with hyperglycemia; Z79.4 - half-way ( current) use of insulin Additional Impressions: Infected insect bite of buttock Encounter type: initial encounter Qualified Codes: S30.860A - Insect bite ( nonvenomous) of lower back and pelvis, initial encounter; L08.9 - Local infection of the skin and subcutaneous tissue, unspecified; W57.XXXA - Bitten or stung by nonvenomous insect and other nonvenomous arthropods, initial encounter
== END 2018-04-20 23:30 | disposition home or self-care (01) ==
LOC: C.EDB 21:16
DX: E11.65 Type 2 diabetes mellitus with hyperglycemia (principal); S30.860A Insect bite (nonvenomous) of lower back and pelvis, initial encounter; W57.XXXA Bitten or stung by nonvenomous insect and other nonvenomous arthropods, initial encounter; L08.9 Local infection of the skin and subcutaneous tissue, unspecified; D64.9 Anemia, unspecified; Z23 Encounter for immunization; J45.909 Unspecified asthma, uncomplicated; I10 Essential (primary) hypertension; Z79.82 Long term (current) use of aspirin; Z79.84 Long term (current) use of oral hypoglycemic drugs; Z79.899 Other long term (current) drug therapy

== ENCOUNTER 2020-05-25 11:03 | Inpatient (IN) ==
[2020-05-25] MEDS ORDERED: KETOROLAC TROMETHAMINE 15 MG/ML VIAL IV STA (11:45)
[2020-05-25] MEDS ORDERED: ONDANSETRON INJ 2 MG/ML 2 ML VIAL IV STA (11:45)
[2020-05-25] MEDS ORDERED: MoRPHine SULFATE 4 MG/ML 1 ML CARP\\VIAL IV PRN (11:45)
[2020-05-25] MEDS ORDERED: SODIUM CHLORIDE 0.9% 1000ML 1,000 ML IV ONE ×2 (11:45→13:02)
[2020-05-25] MEDS ORDERED: MoRPHine SULFATE 4 MG/ML 1 ML CARP\\VIAL IV STA (11:45)
[2020-05-25 11:57] LABS: Appearance Urine Clear (Clear); Bilirubin Urine Negative (Negative); Blood Urine Negative (Negative); Color Urine Yellow; Glucose Urine UA 3+ (Negative); Ketones Urine Negative (Negative); Leukocyte Esterase Urine Negative (Negative); Nitrite Urine Negative (Negative); Protein Urine Negative (Negative); Specific Gravity Urine 1.035 (1.000-1.030); Urobilinogen Urine Negative (Negative)
[2020-05-25 12:01] LABS: Hematocrit (blood only) 43.3 % (42-52); Hemoglobin 14.5 g/dL (14.0-18.0); Mean Corpuscular Hemoglobin 28.7 pg (25-34); Mean Corpuscular Hgb Conc 33.5 g/dL (32-36); Mean Corpuscular Volume 85.7 fL (80-100); Platelet Count 217 K/uL (130-400); RDW Coefficient of Variation 13.7 % (11.5-14.5); RDW Standard Deviation 42.3 fL (36.4-46.3); Red Blood Count 5.05 M/uL (4.7-6.1); White Blood Count 15.41 K/uL (4.8-10.8)
--- NOTE | 2020-05-25 12:03 | Emergency Department Note ---
Impression & Plan Acute left flank pain, Renal colic, Acute hyperglycemia, Leukocytosis ED Provider Note NAME: DORCAS BAXTER AGE: 55 SEX: M : 1965 ARRIVES VIA: Walk-In INFORMANT: [Patient] ED PROVIDER(S): [Wade Millan MD] CHIEF COMPLAINT: Flank pain HISTORY OF PRESENT ILLNESS: The patient presents with left flank pain. Patient states that last night at around 2:30 in the morning, about 10 hours ago, he developed severe left-sided flank pain that went to his left testicle and groin. Even the tip of his penis hurt. The pain was a 10/10. He has had some nausea without vomiting. There has been no fever. Patient states his urine this morning seemed pink in color. The patient has not had cough or congestion or chest pain. He has not suffered trauma. Patient feels he has a kidney stone, he has had them before. The patient has had to undergo lithotripsy in the past. REVIEW OF SYSTEMS: See HPI for pertinent positives and negatives. A total of ten systems were reviewed and were otherwise negative. PMHx/PSHx: See Below SOCIAL HISTORY: See Below. PHYSICAL EXAM: GENERAL: Patient is in no acute distress. HEENT: No acute trauma, normocephalic atraumatic, mucous membranes moist, no nasal congestion, no scleral icterus. NECK: No stridor, no adenopathy, no meningismus, trachea is midline. LUNGS: Clear to auscultation bilaterally, no wheeze, no rhonchi, breath sounds equal. HEART: Without murmurs gallops or rubs, regular rate and rhythm. ABDOMEN: Soft, tender along the entire left side of the abdomen, bowel sounds positive, no hernias, no peritonitis. EXTREMITIES: No cyanosis or edema, full range of motion of all the joints without pain or difficulty, no signs for acute trauma. NEUROLOGIC: Oriented x 3, no acute motor or sensory deficits, no focal weakness. SKIN: No rash, no jaundice, no diaphoresis. Back: Left flank discomfort with percussion. Groin: He does have a yeastlike rash in the groin creases. No evidence for hernia. No scrotal erythema/warmth. DIFFERENTIAL DIAGNOSIS: Renal colic, UTI, appendicitis, diverticulitis, mesenteric ischemia, aortic pathology, infections, inflammatory bowel disease, PUD, biliary pathology, as well as other pathologies. EMERGENCY DEPARTMENT COURSE/PROCEDURES: MEDICAL DECISION MAKING: There is a moderate leukocytosis, this could be consistent with infection or just his pain. There is no anemia. Glucose was quite high at 367. No kidney failure. Urinalysis shows glucose, no signs of infection. Abdominal and pelvis CT shows hydronephrosis on the left from a distal 5 mm ureteral stone. The patient was quite uncomfortable. He was given IV morphine for pain, IV Toradol for pain. He received IV saline. Patient was given IV insulin because of the high sugar value. He received IV Zofran for nausea. The patient is resting more comfortably but still does have pain in the left flank/abdomen. Given the hyperglycemia, given the size of the stone, given his amount of pain, I do think a hospital stay would be reasonable. I did speak with the patient and with case management. The on-call hospitalist was consulted. Past Med/Surg History Medical History Asthma Cutaneous candidiasis Diabetes mellitus Nephrolithiasis Surgical History H/O oral surgery Family History Mother Breast cancer Thyroid cancer Uncle Myocardial infarction Family/Other Myocardial infarction self Father Skin cancer Aunt Skin cancer Other No significant family history Denies family history of Ovarian cancer Prostate cancer Colorectal cancer Social History Smoking Status: Former smoker Tobacco Type: Cigarettes Second Hand Exposure: No; Hx Alcohol Use: No Hx Substance Use: No Preferred Language: Yoruba Communication Ability: Effective Senior Budget Analyst Required: No Beliefs That Will Affect Care: None marital status: Single Current Living Situation: Alone current occupational status: employed and disabled current occupation: [employer] Other Information That Helps Us Care for You: No Feels Safe at Home: Yes Safety Concerns: Feels Safe At This Time caffeine: Yes (coffee ) Dental Care, Regularly: No Physical Activity Frequency: Does not Exercise Seatbelt Use: always Sunscreen Use: No Allergies Allergies Allergy/AdvReac Type Severity Reaction Status Date / Time bupropion Allergy Intermediate BLACKS Verified 05/25/20 13:43 OUT,DISORIENTED, IN A DAZE peas Allergy Intermediate Gastrointestinal Verified 05/25/20 13:43 Upset povidone-iodine Allergy Intermediate RASH,HIVES Verified 05/25/20 13:43 quetiapine Allergy Intermediate Sleep Verified 05/25/20 13:43 Walking strawberry Allergy Intermediate GI SYMPTOMS Verified 05/25/20 13:43 Iodinated Contrast Media Allergy Mild GI Verified 05/25/20 13:43 SYMPTOMS,TONGUE SWELLED UP shellfish derived Allergy Mild GI SYMPTOMS Verified 05/25/20 13:43 clindamycin Allergy Verified 05/25/20 13:43 Penicillins Allergy Hives Unverified 05/25/20 13:43 codeine AdvReac Intermediate Gastrointestinal Verified 05/25/20 13:43 Upset Home Meds Home Medications Medication Instructions Recorded Confirmed aspirin [Adult Low Dose Aspirin] 1 tab PO QAM 06/22/18 05/25/20 lancets 33 gauge #100 ea 03/15/19 05/24/20 methylphenidate HCl 54 mg 54 mg PO QAM 06/11/19 05/25/20 tablet,extended release 24 hr acetaminophen [Tylenol Extra 500 mg PO Q6H PRN 03/06/20 05/25/20 Strength] diltiazem HCl 300 mg PO QAM 03/06/20 05/25/20 magnesium oxide 400 mg PO BID 03/06/20 05/25/20 metformin 500 mg PO QAM 03/06/20 05/25/20 methylphenidate HCl 18 mg PO DAILY@1200 03/06/20 05/25/20 nystatin 1 appln TOP TID PRN 03/06/20 05/25/20 Previous Rx's Medication Instructions Recorded pen needle, diabetic 32 gauge x See Rx Instructions .ROUTE 05/25/1930" .COMPLEX #100 unspecified blood pressure monitor #1 ea 06/08/19 blood sugar diagnostic #100 ea 06/16/19 atorvastatin 20 mg tablet 20 mg PO HS #90 tab 06/22/19 carvedilol 25 mg tablet 25 mg PO BID #180 tab 06/22/19 enalapril maleate 20 mg tablet 20 mg PO BID #180 tab 06/22/19 insulin detemir U-100 100 unit/mL 45 units SQ QPM #15 ml 02/29/20 (3 mL) subcutaneous pen glipizide 10 mg tablet, extended 10 mg PO BID #180 tab 04/12/20 release 24 hr albuterol sulfate 90 mcg/actuation 2 puff INHALATION Q4 PRN #18 gm 05/03/20 aerosol inhaler cholecalciferol (vitamin D3) 125 125 mcg PO TIDM #180 tab 05/03/20 mcg (5,000 unit) tablet potassium chloride 20 mEq 40 meq PO QAM #60 tab 05/03/20 tablet,extended release doxycycline hyclate 100 mg tablet 100 mg PO BID #20 tab 05/24/20 hydrochlorothiazide 25 mg tablet 25 mg PO QAM #90 tab 05/24/20 Results & Data (ED) Vital Signs Vital Signs - 24 hr 05/25/20 11:06 05/25/20 11:30 05/25/20 12:00 Temperature 36.5 C Temperature Source Oral Pulse Rate 71 51 L 53 L Pulse Rate from SpO2 Sensor 52 L Respiratory Rate 18 12 15 Respiratory Effort / Characteristics Non-Labored Spontaneous Respiratory Depth Normal Respiratory Pattern Regular Blood Pressure 147/72 H 150/77 H 154/89 H Blood Pressure Mean 97 98 101 Blood Pressure Position Sitting Pulse Oximetry 93 93 96 Oxygen Delivery Method Room Air Room Air Room Air Sepsis Recent Fever Within 48 Hours No Sepsis New/Unexplained Change in Mental Status N/A Sepsis Action Taken by Nursing No Action Required 05/25/20 12:52 05/25/20 13:00 05/25/20 13:01 Temperature Temperature Source Pulse Rate 53 L 52 L 52 L Pulse Rate from SpO2 Sensor 53 L 52 L 52 L Respiratory Rate 13 20 13 Respiratory Effort / Characteristics Respiratory Depth Respiratory Pattern Blood Pressure 145/75 H 166/92 H Blood Pressure Mean 86 117 Blood Pressure Position Pulse Oximetry 93 93 93 Oxygen Delivery Method Room Air Room Air Sepsis Recent Fever Within 48 Hours Sepsis New/Unexplained Change in Mental Status Sepsis Action Taken by Nursing 05/25/20 13:30 05/25/20 13:31 Temperature Temperature Source Pulse Rate 49 L 53 L Pulse Rate from SpO2 Sensor 50 L 53 L Respiratory Rate 12 12 Respiratory Effort / Characteristics Respiratory Depth Respiratory Pattern Blood Pressure 145/59 H Blood Pressure Mean 96 Blood Pressure Position Pulse Oximetry 94 90 Oxygen Delivery Method Sepsis Recent Fever Within 48 Hours Sepsis New/Unexplained Change in Mental Status Sepsis Action Taken by Usp Medications Current Medication List: was personally reviewed by me Laboratory Data Attestation: I reviewed the patient's lab results. Result diagrams: 05/25/20 11:31 05/25/20 11:31 Lab Results 05/25/20 05/25/20 05/25/20 Range/Units 11:22 11:31 11:31 WBC 15.41 H (4.8-10.8) K/uL RBC 5.05 (4.7-6.1) M/uL Hgb 14.5 (14.0-18.0) g/dL Hct 43.3 (42-52) % MCV 85.7 (80-100) fL MCH 28.7 (25-34) pg MCHC 33.5 (32-36) g/dL RDW Std Deviation 42.3 (36.4-46.3) fL RDW Coeff of Nydia 13.7 (11.5-14.5) % Plt Count 217 (130-400) K/uL MPV 10.0 (7.4-10.4) fL Sodium 133 L (136-145) mmol/L Potassium 4.2 (3.5-5.1) mmol/L Chloride 100 (98-107) mmol/L Carbon Dioxide 27 (21-32) mmol/L Anion Gap 6.0 (3-11) BUN 29 H (7-18) mg/dl Creatinine 1.10 (0.6-1.4) mg/dl Est Cr Clr Drug Dosing 126.4 ml/min Est GFR ( Amer) 88.4 Est GFR (Non-Af Amer) 76.2 BUN/Creatinine Ratio 26.0 H (10-20) Glucose 367 H* (70-99) mg/dl POC Glucose (70-99) mg/dl Calcium 9.1 (8.5-10.1) mg/dl Beta-Hydroxybutyric Acd (0.2-2.81) mg/dl Urine Color Yellow Urine Appearance Clear (Clear) Urine pH 5.0 (4.5-7.5) Ur Specific Pollok 1.035 H (1.000-1.030) Urine Protein Negative (Negative) Urine Glucose (UA) 3+ H (Negative) Urine Ketones Negative (Negative) Urine Blood Negative (Negative) Urine Nitrite Negative (Negative) Urine Bilirubin Negative (Negative) Urine Urobilinogen Negative (Negative) Ur Leukocyte Esterase Negative (Negative) 05/25/20 05/25/20 Range/Units 12:50 13:32 WBC (4.8-10.8) K/uL RBC (4.7-6.1) M/uL Hgb (14.0-18.0) g/dL Hct (42-52) % MCV (80-100) fL MCH (25-34) pg MCHC (32-36) g/dL RDW Std Deviation (36.4-46.3) fL RDW Coeff of Nydia (11.5-14.5) % Plt Count (130-400) K/uL MPV (7.4-10.4) fL Sodium (136-145) mmol/L Potassium (3.5-5.1) mmol/L Chloride (98-107) mmol/L Carbon Dioxide (21-32) mmol/L Anion Gap (3-11) BUN (7-18) mg/dl Creatinine (0.6-1.4) mg/dl Est Cr Clr Drug Dosing ml/min Est GFR ( Amer) Est GFR (Non-Af Amer) BUN/Creatinine Ratio (10-20) Glucose (70-99) mg/dl POC Glucose 328 H* 264 H (70-99) mg/dl Calcium (8.5-10.1) mg/dl Beta-Hydroxybutyric Acd (0.2-2.81) mg/dl Urine Color Urine Appearance (Clear) Urine pH (4.5-7.5) Ur Specific Pollok (1.000-1.030) Urine Protein (Negative) Urine Glucose (UA) (Negative) Urine Ketones (Negative) Urine Blood (Negative) Urine Nitrite (Negative) Urine Bilirubin (Negative) Urine Urobilinogen (Negative) Ur Leukocyte Esterase (Negative) Administered Medications Sodium Chloride (Nss 1000ml) 1,000 mls @ 999 mls/hr IV .Q1H1M STA Stop: 05/25/20 14:03 Last Admin: 05/25/20 13:19 Dose: 999 mls/hr Documented by: [id number] Morphine Sulfate (Morphine Sulfate 4 Mg/Ml 1 Ml Carp\\Vial) 4 mg IV Q30M PRN PRN Reason: Pain Stop: 06/08/20 11:44 Last Admin: 05/25/20 12:56 Dose: 4 mg Documented by: [id number] Discontinued Medications Sodium Chloride (Nss 1000ml) 1,000 mls @ 999 mls/hr IV .Q1H1M ONE Stop: 05/25/20 12:45 Last Infusion: 05/25/20 13:02 Dose: 0 mls/hr Documented by: [id number] Admin: 05/25/20 11:59 Dose: 999 mls/hr Documented by: [id number] Insulin Human Regular (Novolin-R Insulin Per Unit Charge) 10 units IV NOW STA Stop: 05/25/20 12:40 Last Admin: 05/25/20 13:00 Dose: 10 units Documented by: [id number] Cosigned by: [id number] Ketorolac Tromethamine (Ketorolac Tromethamine 15 Mg/Ml Vial) 15 mg IV NOW STA Stop: 05/25/20 11:46 Last Admin: 05/25/20 11:59 Dose: 15 mg Documented by: [id number] Morphine Sulfate (Morphine Sulfate 4 Mg/Ml 1 Ml Carp\\Vial) 4 mg IV NOW STA Stop: 05/25/20 11:46 Last Admin: 05/25/20 11:59 Dose: 4 mg Documented by: [id number] Ondansetron HCl (Ondansetron Inj 2 Mg/Ml 2 Ml Vial) 4 mg IV NOW STA Stop: 05/25/20 11:46 Last Admin: 05/25/20 11:59 Dose: 4 mg Documented by: [id number] Tamsulosin HCl (Tamsulosin Hcl 0.4 Mg Cap) 0.4 mg PO NOW STA Stop: 05/25/20 13:05 Last Admin: 05/25/20 13:19 Dose: 0.4 mg Documented by: [id number] Imaging Data Radiologist's Impression: CT SCAN OF THE ABDOMEN AND PELVIS WITHOUT CONTRAST CLINICAL HISTORY: Left flank pain, nausea. COMPARISON STUDY: No previous studies for comparison. TECHNIQUE: CT scan of the abdomen and pelvis was performed from the lung bases to the proximal femurs. Images are reviewed in the axial, sagittal, and coronal planes. IV contrast was not administered for this examination. A dose lowering technique was utilized adhering to the principles of ALARA. CT DOSE: 1760.46 mGy.cm FINDINGS: Lower chest: The heart is normal in size and configuration, without pericardial effusion. The lung bases and pleural spaces are clear. Liver: There is hepatic steatosis. The liver is enlarged measuring 25 cm. Gallbladder: Unremarkable. Spleen: Normal in size and attenuation. Pancreas: Unremarkable. Adrenal glands: Unremarkable. Kidneys: There is left-sided hydronephrosis and perinephric stranding. There are lower pole left renal calculi measuring up to 3 mm in diameter. There is mild left ureteral dilatation. There is a 5 mm left UVJ calculus. In addition to small bladder calculi are visualized Bowel: There are no transition zones to indicate bowel obstruction. The appendix appears normal. There is no acute diverticulitis. Peritoneum: There is no intraperitoneal free air or abdominal ascites. Vasculature: The abdominal aorta is normal in course and caliber. Adenopathy: None. Pelvic viscera: There are prostatic calcifications present. 2 bladder calculi are visualized. Skeletal structures: No destructive osseous lesions are seen. IMPRESSION: 1. 5 mm distal left ureteral calculus with secondary obstructive change 2. Left-sided nephrolithiasis 3. There are two 4 mm bladder calculi 4. Hepatic steatosis, and hepatomegaly Blood Pressure Blood Pressure Findings: Elevated blood pressure Blood Pressure Disposition: further management by hospitalist Discharge Plan Visit Data Chief Complaint: Kidney Stone Stated Complaint: LEFT SIDE KIDNEY STONES ED Provider: Wade Millan Discharge Problem: Acute left flank pain, Renal colic, Acute hyperglycemia, Leukocytosis Patient Disposition: Admitted As Inpatient Condition: Good Forms Stand Alone Forms: [facility] Business [employer] via [place] Prescriptions Prescriptions: No Action pen needle, diabetic [BD Ultra-Fine Isabela Pen Needle] 32 gauge x 5/32" needle See Rx Instructions .ROUTE .COMPLEX Qty: 100 RF: 5 (DME) blood pressure monitor [Blood Pressure Kit] kit See Dose Instructions .ROUTE .MEDSUPPLY Qty: 1 RF: 0 Levemir FlexTouch U-100 Insuln 100 unit/mL (3 mL) insulin pen 45 units SQ QPM Qty: 15 RF: 3 glipizide 10 mg tablet extended release 24hr 10 mg PO BID Qty: 180 RF: 0 cholecalciferol (vitamin D3) [Vitamin D3] 125 mcg (5,000 unit) tablet 125 mcg PO TIDM Qty: 180 RF: 0 albuterol sulfate 90 mcg/actuation HFA aerosol inhaler 2 puff INHALATION Q4 PRN (Reason: Shortness Of Breath Or Wheezing) Qty: 18 RF: 1 potassium chloride 20 mEq tablet extended release 40 meq PO QAM Qty: 60 RF: 3 (DME) lancets [OneTouch Delica Lancets] 33 gauge misc See Dose Instructions .ROUTE .MEDSUPPLY Qty: 100 RF: 0 atorvastatin 20 mg tablet 20 mg PO HS Qty: 90 RF: 3 carvedilol [Coreg] 25 mg tablet 25 mg PO BID Qty: 180 RF: 3 enalapril maleate [Vasotec] 20 mg tablet 20 mg PO BID Qty: 180 RF: 3 methylphenidate HCl [Concerta] 54 mg tablet extended release 24hr 54 mg PO QAM RF: 0 doxycycline hyclate 100 mg tablet 100 mg PO BID Qty: 20 RF: 2 hydrochlorothiazide 25 mg tablet 25 mg PO QAM Qty: 90 RF: 1 (DME) [employer] Ultra Blue Test Strip strip See Dose Instructions .ROUTE .MEDSUPPLY Qty: 100 RF: 1 aspirin [Adult Low Dose Aspirin] 81 mg Tablet,Delayed Release (Dr/Ec) 1 tab PO QAM RF: 0 methylphenidate HCl 18 mg tablet extended release 24hr 18 mg PO DAILY@1200 RF: 0 metformin 500 mg tablet 500 mg PO QAM RF: 0 magnesium oxide 400 mg (241.3 mg magnesium) tablet 400 mg PO BID RF: 0 nystatin 100,000 unit/gram cream 1 appln TOP TID PRN (Reason: Skin Irritation) RF: 0 diltiazem HCl 300 mg tablet extended release 24 hr 300 mg PO QAM RF: 0 acetaminophen [Tylenol Extra Strength] 500 mg Tablet 500 mg PO Q6H PRN (Reason: Pain) RF: 0 Referrals Referrals: Chaim Loredo DO [Primary Care Provider] - Discharge Problem: Leukocytosis Qualifiers: Leukocytosis type: unspecified Qualified Code(s): D72.829 - Elevated white blood cell count, unspecified
[2020-05-25 12:20] LABS: Calcium 9.1 mg/dl (8.5-10.1); Creatinine Clr Calc Pharmacy 126.4 ml/min; Est GFR (African American) 88.4; Est GFR (Non-African American) 76.2; Potassium 4.2 mmol/L (3.5-5.1)
--- NOTE | 2020-05-25 12:35 | CT Scan Report ---
CT SCAN OF THE ABDOMEN AND PELVIS WITHOUT CONTRAST CLINICAL HISTORY: Left flank pain, nausea. COMPARISON STUDY: No previous studies for comparison. TECHNIQUE: CT scan of the abdomen and pelvis was performed from the lung bases to the proximal femurs . Images are reviewed in the axial, sagittal, and coronal planes. IV contrast was not administered fo r this examination. A dose lowering technique was utilized adhering to the principles of ALARA. CT DOSE: 1760.46 mGy.cm FINDINGS: Lower chest: The heart is normal in size and configuration, without pericardial effusion. The lung ba ses and pleural spaces are clear. Liver: There is hepatic steatosis. The liver is enlarged measuring 25 cm. Gallbladder: Unremarkable. Spleen: Normal in size and attenuation. Pancreas: Unremarkable. Adrenal glands: Unremarkable. Kidneys: There is left-sided hydronephrosis and perinephric stranding. There are lower pole left charo l calculi measuring up to 3 mm in diameter. There is mild left ureteral dilatation. There is a 5 mm l eft UVJ calculus. In addition to small bladder calculi are visualized Bowel: There are no transition zones to indicate bowel obstruction. The appendix appears normal. Ther e is no acute diverticulitis. Peritoneum: There is no intraperitoneal free air or abdominal ascites. Vasculature: The abdominal aorta is normal in course and caliber. Adenopathy: None. Pelvic viscera: There are prostatic calcifications present. 2 bladder calculi are visualized. Skeletal structures: No destructive osseous lesions are seen. IMPRESSION: 1. 5 mm distal left ureteral calculus with secondary obstructive change 2. Left-sided nephrolithiasis 3. There are two 4 mm bladder calculi 4. Hepatic steatosis, and hepatomegaly ACT 112: Negative or not required by law. Electronically signed by: Jose F Arroyo M.D. 05/25/2020 12:33 PM
[2020-05-25] MEDS ORDERED: NovoLIN-R INSULIN PER UNIT CHARGE IV STA (12:39)
[2020-05-25] MEDS ORDERED: INSULIN ASPART 100 UNITS/ML 3 ML PEN SC STA (13:01)
[2020-05-25] MEDS ORDERED: SODIUM CHLORIDE 0.9% 1000ML 1,000 ML IV STA (13:03)
[2020-05-25] MEDS ORDERED: TAMSULOSIN HCL 0.4 MG CAP PO STA (13:04)
--- NOTE | 2020-05-25 13:17 | History & Physical Report ---
Date of Service May 25, 2020 Assessment & Plan (1) Ureterolithiasis: 5mm - hopefully will pass without surgical intervention. Tamsulosin 0.4mg PO Now and QAM. Additional NSS bolus, then LR @ 175 ml/hr. (2) Hydronephrosis of left kidney: Despite elevated WBC and glucosuria no current infection suspected however high risk of this given his diabetes. No need for urgent intervention at this time. Consult urology. (3) Renal colic: Pain control with acetaminophen PRN, Toradol PRN, Morphine PRN (4) Attention deficit hyperactivity disorder: Hold Concerta (5) Diabetes mellitus type 2, uncontrolled: HbA1C with AM labs, previously 10.13 June 2019 (6) Sleep apnea: CPAP HS 19-20 cm H2O (7) Tobacco use disorder: Discussed chewing cessation Declined nicotine replacement products at the current time. (8) Dentalgia: Currently on doxycycline due to concern for dental abscess, none currently suspected. We will continue this during his admission. Encouraged to seek a dental appointment as soon as possible. History of Present Illness Chief Complaint: Left sided renal colic pain Primary Care Provider: DO Teddy Avila Stephen is a 55-year-old male with prior history of kidney stones and type 2 diabetes who presents to the ER with left-sided renal colic pain. First noticed left-sided abdominal pain around 2 AM last night. Managed to get back to sleep but progressively became worse in the morning with severe 10/10 pain around 5:30 AM from his left flank around the left side of his abdomen into his left testicle and groin. He denies any fevers, chills, dysuria, urinary frequency, change in the color/odor. Currently his pain is 6/10 after morphine and Toradol given in the ER. Prior history of nephrolithiasis previously under Dr. Cline requiring lithotripsy in the past. In the ER CT abdomen/pelvis without IV contrast confirms a 5 mm stone in the left UVJ causing left-sided ureteral-hydronephrosis. Patient was referred to medicine for admission due to hydronephrosis in the setting of an obstructing stone. Allergies Allergy/AdvReac Type Severity Reaction Status Date / Time bupropion Allergy Intermediate BLACKS Verified 05/25/20 13:43 OUT,DISORIENTED, IN A DAZE peas Allergy Intermediate Gastrointestinal Verified 05/25/20 13:43 Upset povidone-iodine Allergy Intermediate RASH,HIVES Verified 05/25/20 13:43 quetiapine Allergy Intermediate Sleep Verified 05/25/20 13:43 Walking strawberry Allergy Intermediate GI SYMPTOMS Verified 05/25/20 13:43 Iodinated Contrast Media Allergy Mild GI Verified 05/25/20 13:43 SYMPTOMS,TONGUE SWELLED UP shellfish derived Allergy Mild GI SYMPTOMS Verified 05/25/20 13:43 clindamycin Allergy Verified 05/25/20 13:43 Penicillins Allergy Hives Unverified 05/25/20 13:43 codeine AdvReac Intermediate Gastrointestinal Verified 05/25/20 13:43 Upset Home Medications Home Medications Medication Instructions Recorded Confirmed Type aspirin [Adult Low Dose Aspirin] 1 tab PO QAM 06/22/18 05/24/20 History lancets 33 gauge #100 ea 03/15/19 05/24/20 History pen needle, diabetic 32 gauge x See Rx Instructions .ROUTE 05/25/19 05/24/20 Rx 5/32" .COMPLEX #100 unspecified blood pressure monitor #1 ea 06/08/19 05/24/20 Rx methylphenidate HCl 54 mg 54 mg PO QAM 06/11/19 05/24/20 History tablet,extended release 24 hr blood sugar diagnostic #100 ea 06/16/19 05/24/20 Rx atorvastatin 20 mg tablet 20 mg PO HS #90 tab 06/22/19 05/24/20 Rx carvedilol 25 mg tablet 25 mg PO BID #180 tab 06/22/19 05/24/20 Rx enalapril maleate 20 mg tablet 20 mg PO BID #180 tab 06/22/19 05/24/20 Rx insulin detemir U-100 100 unit/mL 45 units SQ QPM #15 ml 02/29/20 05/24/20 Rx (3 mL) subcutaneous pen acetaminophen [Tylenol Extra 500 mg PO Q6H PRN 03/06/20 05/24/20 History Strength] diltiazem HCl 300 mg PO QAM 03/06/20 05/24/20 History magnesium oxide 400 mg PO BID 03/06/20 05/24/20 History metformin 500 mg PO QAM 03/06/20 05/24/20 History methylphenidate HCl 18 mg PO DAILY@1200 03/06/20 05/24/20 History nystatin 1 appln TOP TID PRN 03/06/20 05/24/20 History glipizide 10 mg tablet, extended 10 mg PO BID #180 tab 04/12/20 05/24/20 Rx release 24 hr albuterol sulfate 90 mcg/actuation 2 puff INHALATION Q4 PRN #18 gm 05/03/20 0 05/24/20 Rx aerosol inhaler cholecalciferol (vitamin D3) 125 125 mcg PO TIDM #180 tab 05/03/20 05/24/20 Rx mcg (5,000 unit) tablet potassium chloride 20 mEq 40 meq PO QAM #60 tab 05/03/20 05/24/20 Rx tablet,extended release doxycycline hyclate 100 mg tablet 100 mg PO BID #20 tab 05/24/20 05/24/20 Rx hydrochlorothiazide 25 mg tablet 25 mg PO QAM #90 tab 05/24/20 05/24/20 Rx Past Med/Surg History Medical History Asthma Cutaneous candidiasis Diabetes mellitus Nephrolithiasis Surgical History H/O oral surgery Family History Mother Breast cancer Thyroid cancer Uncle Myocardial infarction Family/Other Myocardial infarction self Father Skin cancer Aunt Skin cancer Other No significant family history Denies family history of Ovarian cancer Prostate cancer Colorectal cancer Social History Smoking Status: Former smoker Tobacco Type: Cigarettes Second Hand Exposure: No; Hx Alcohol Use: No Hx Substance Use: No Preferred Language: Turkish Communication Ability: Effective Manager Stars Required: No Beliefs That Will Affect Care: None marital status: Single Current Living Situation: Alone current occupational status: employed and disabled current occupation: Car [employer] Other Information That Helps Us Care for You: No Feels Safe at Home: Yes Safety Concerns: Feels Safe At This Time caffeine: Yes (coffee ) Dental Care, Regularly: No Physical Activity Frequency: Does not Exercise Seatbelt Use: always Sunscreen Use: No Review of Systems Review of Systems: All systems reviewed & are unremarkable except as noted in HPI & below He reports he is currently on treatment for an infected left lower molar. He has had trouble seeing a dentist as his regular dentist which closed down due to the current pandemic. He is currently taking doxycycline and prednisone prescribed by his PCP. He notes no significant change in his pain with these medications. He feels his pain is worse when his glucose is higher. Currently trying to quit chewing tobacco - using [place] herbal chew to achieve this for the last 2 week. Physical Exam Constitutional: well developed and + morbidly obese; + not well nourished and no acute distress Eyes: + anicteric sclerae; normal pupil size ENMT: Mouth: + dental caries (Multiple for several lost teeth, no erythema or swelling surrounding base of concerning left molar) Neck: + short neck and + thick neck Respiratory: normal respiratory effort, lungs clear to auscultation Cardiovascular: Rate/Rhythm: regular rate and regular rhythm Heart Sounds: no murmur Gastrointestinal (Abdomen): Inspection/Auscultation: normal bowel sounds Percussion/Palpation: + abdomen tender (Left-sided) and abdomen soft; no guarding and abdomen not rigid Musculoskeletal: no cyanosis or clubbing, extremities motor strength 5/5 Skin: no rashes, warm and dry Neurologic: moves all extremities and awake; not confused Psychiatric: A+Ox3, euthymic affect Genitourinary: + CVA tenderness (Left) Results & Data Results & Data ([facility]) Vital Signs (Past 12 Hours) Vital Signs Temp Pulse Resp BP Pulse Ox 05/25/20 11:06 36.5 C 71 18 147/[address] SCAN OF THE ABDOMEN AND PELVIS WITHOUT CONTRAST IMPRESSION: 1. 5 mm distal left ureteral calculus with secondary obstructive change 2. Left-sided nephrolithiasis 3. There are two 4 mm bladder calculi 4. Hepatic steatosis, and hepatomegaly Code Status & VTE Plan Code Status Full VTE Prophylaxis Plan VTE Prophylaxis will be ordered: No PG Care Time/CCT Total # of Minutes Spent Total Time Spent with Patient: Total time spent is greater than 50% in coordination of care (as documented) at patient's floor/unit and/or counseling patient: Coding Level of Care Code 79179 Initial Inpt Care Lvl 3 Diagnoses Ureterolithiasis N20.1 Hydronephrosis of left kidney N13.30 Renal colic N23 Attention deficit hyperactivity disorder F90.9 Diabetes mellitus type 2, uncontrolled E11.65 Sleep apnea G47.30 Tobacco use disorder F17.200 Dentalgia K08.89
[2020-05-25] MEDS ORDERED: GLUCOSE 10 TABS/TUBE PO PRN (14:39)
[2020-05-25] MEDS ORDERED: MoRPHine SULFATE 2 MG/ML CARP IV PRN (14:39)
[2020-05-25] MEDS ORDERED: CARBOHYDRATES FOR HYPOGLYCEMIA PO PRN (14:39)
[2020-05-25] MEDS ORDERED: POLYETHYLENE (MIRALAX) 17 GM PACK PO PRN (14:39)
[2020-05-25] MEDS ORDERED: GLUCAGON FOR INJ 1 MG VIAL SQ PRN (14:39)
[2020-05-25] MEDS ORDERED: GLUCOSE 40% GEL 15 GM TUBE PO PRN (14:39)
[2020-05-25] MEDS ORDERED: ONDANSETRON INJ 2 MG/ML 2 ML VIAL IV PRN (14:39)
[2020-05-25] MEDS ORDERED: ALUMINUM/MAGNESIUM SUSP 30 ML UDC PO PRN (14:39)
[2020-05-25] MEDS ORDERED: DEXTROSE 50% 50 ML SYRINGE IV PRN (14:39)
[2020-05-25] MEDS ORDERED: ACETAMINOPHEN 325 MG TAB PO PRN (14:39)
[2020-05-25] MEDS ORDERED: KETOROLAC 30 MG/ML VIAL IV PRN (14:39)
[2020-05-25] MEDS: LACTATED RINGER'S 1,000 ML IV SCH ×2 (14:47→20:53)
[2020-05-25] MEDS: INSULIN ASPART 100 UNITS/ML 3 ML PEN SC SCH ×4 (15:50→23:13)
--- NOTE | 2020-05-25 18:24 | XRay Report ---
KUB HISTORY: Left ureteral calculus left ureteral stone COMPARISON: CT abdomen and pelvis of same day FINDINGS: The bowel gas pattern is non-obstructive. There is no organomegaly. 3 mm calculus of the i nferior pole left kidney redemonstrated. Stool within the rectum and redundant sigmoid limits the exa m. Moderate fecal retention. 4 mm radiodensity is noted within the inferior left hemipelvis. The prev iously noted dependent urinary bladder calculi are not identified. There is no pneumoperitoneum or pn eumatosis. No fracture. IMPRESSION: 1. Limited exam secondary to obscuring bowel gas. 2. 4 mm radiodensity of the inferior left hemipelvis may correlate with the previously described dist al ureteral calculus. 3. Left nephrolithiasis. ACT 112: Negative or not required by law. The above report was generated using voice recognition software. It may contain grammatical, syntax o r spelling errors. Electronically signed by: Reed Vizcaino M.D. 05/25/2020 6:22 PM
--- NOTE | 2020-05-25 19:02 | Consultation Report ---
DATE OF CONSULTATION: 05/25/2020 REASON FOR THE CONSULT: Left ureteral stone. HISTORY OF PRESENTATION: The patient is a 55-year-old male with history of stone disease who in 2017 had left ESWL for an 8 mm stone, but since then has passed intermittently small stones. Today, he had onset of severe pain overnight and it got increasingly severe in the morning and came to the hospital, had a CAT scan that showed 2 stones in his bladder and a third stone in the distal ureter approximately 5 mm at the UVJ. The patient was given Flomax and pain medicine and approximately 2-1/2 hours ago, he passed 3 stones, which have been sent for analysis. He is not sure how big they were, but there were at least 3-4 mm, it sounds like. Given this and given that he does have slight soreness of his left ureter, otherwise feels well, we will get a KUB and I have talked to the hospitalist to discuss whether he should be discharged on Flomax and pain medicine overnight. I did warn the patient that it is possible that he could have the stone there even if the KUB does not show it, but given that he had 3 stones and there seemed to be 3 stones that he passed, it seems likely that he has passed the stone. The patient does have a small stone left in his left kidney, but otherwise he seems to be relatively stone free. ALLERGIES: THE PATIENT HAS MULTIPLE ALLERGIES, PLEASE REFER TO THE CHART FOR THESE. PAST MEDICAL HISTORY: Includes type 2 diabetes, history of smoking, history of sleep apnea, hypertension, attention deficit disorder, hypomagnesia, chronic diastolic congestive heart failure, and morbid obesity. MEDICATIONS: Include albuterol, low-dose aspirin, atorvastatin 20 mg daily, ., vitamin D 125 mcg or 5000 units daily, diltiazem 300 mg daily, doxycycline 100 mg b.i.d., enalapril 20 mg p.o. b.i.d., glipizide 10 mg p.o. b.i.d., hydrochlorothiazide 25 mg daily, insulin, metformin 500 mg daily, methylphenidate 80 mg p.o. daily, methylphenidate hydrochloride tablets extended release 54 mg p.o. q.a.m., potassium citrate 20 mEq 2 p.o. q.a.m. PHYSICAL EXAMINATION: GENERAL: The patient does not appear to be in any distress. He is walking in the halls. He is a large, morbidly obese male. HEENT: Normal vision. Eyes are normal. Throat appears normal to examination. HEENT appears normal to examination. LUNGS: No respiratory distress. FLANKS: No flank pain to percussion. ABDOMEN: Soft. SKIN: Appears normal, dry without rash. EXTREMITIES: Unremarkable. Normal range of motion. NEUROLOGIC: He is alert and oriented without any focal sensory deficits. PSYCHOLOGICAL: He has normal affect. ASSESSMENT AND PLAN: A 55-year-old male with 3 stones, 2 in the bladder and 1 in the distal ureter; he has passed 3 stones. We will get a KUB. The patient appears to be pain free at this time. It seems highly likely that he has passed the stone that was in the intramural ureter at the time of the CT. We would discharge the patient on Flomax with some pain medicine in the event that it recurs and have him follow up in 6 months with a KUB. JACKY
[2020-05-25] MEDS: INSULIN GLARGINE SOLOSTAR 100 UNITS/ML 3 ML PEN SC SCH (21:49)
[2020-05-26] MEDS: LACTATED RINGER'S 1,000 ML IV SCH ×2 (02:42→08:28)
[2020-05-26 06:15] LABS: Hematocrit (blood only) 40.4 % (42-52); Hemoglobin 13.1 g/dL (14.0-18.0); Mean Corpuscular Hemoglobin 28.7 pg (25-34); Mean Corpuscular Hgb Conc 32.4 g/dL (32-36); Mean Corpuscular Volume 88.4 fL (80-100); Mean Platelet Volume 9.8 fL (7.4-10.4); Platelet Count 186 K/uL (130-400); RDW Coefficient of Variation 14.1 % (11.5-14.5); RDW Standard Deviation 45.8 fL (36.4-46.3); Red Blood Count 4.57 M/uL (4.7-6.1); White Blood Count 8.65 K/uL (4.8-10.8)
[2020-05-26] MEDS ORDERED: Nursing to Pharmacy Communication SCH (06:15)
[2020-05-26] MEDS ORDERED: INSULIN ASPART 100 UNITS/ML 3 ML PEN SC SCH (06:15)
[2020-05-26 06:50] LABS: BUN Creatinine Ratio 31.1 (10-20); Calcium 8.5 mg/dl (8.5-10.1); Creatinine Clr Calc Pharmacy 165.5 ml/min; Est GFR (African American) 115.9; Potassium 3.9 mmol/L (3.5-5.1)
[2020-05-26 07:43] LABS: Estimated Average Glucose 318 mg/dl; Hemoglobin A1C 12.7 % (4.5-5.6)
[2020-05-26] MEDS: INSULIN GLARGINE SOLOSTAR 100 UNITS/ML 3 ML PEN SC SCH (08:33)
[2020-05-26] MEDS ORDERED: TAMSULOSIN HCL 0.4 MG CAP PO SCH (09:00)
--- NOTE | 2020-05-26 16:24 | Discharge Summary ---
Date of Service May 26, 2020 Admission HPI Per Admitting Provider Teddy Mitchell is a 55-year-old male with prior history of kidney stones and type 2 diabetes who presents to the ER with left-sided renal colic pain. First noticed left-sided abdominal pain around 2 AM last night. Managed to get back to sleep but progressively became worse in the morning with severe 10/10 pain around 5:30 AM from his left flank around the left side of his abdomen into his left testicle and groin. He denies any fevers, chills, dysuria, urinary frequency, change in the color/odor. Currently his pain is 6/10 after morphine and Toradol given in the ER. Prior history of nephrolithiasis previously under Dr. Cline requiring lithotripsy in the past. In the ER CT abdomen/pelvis without IV contrast confirms a 5 mm stone in the left UVJ causing left-sided ureteral-hydronephrosis. Patient was referred to medicine for admission due to hydronephrosis in the setting of an obstructing stone. Principal Diagnosis Kidney stone Discharge Exam Constitutional WD/WN, vitals as above Respiratory normal respiratory effort, lungs clear to auscultation Cardiovascular RRR, no murmur, no edema Gastrointestinal (Abdomen) normal bowel sounds, soft, nontender, no hepatosplenomegaly Musculoskeletal no cyanosis or clubbing, extremities motor strength 5/5 Skin no rashes, warm and dry Neurologic moves all extremities and awake Psychiatric A+Ox3, euthymic affect Discharge Data Allergies Allergy/AdvReac Type Severity Reaction Status Date / Time bupropion Allergy Intermediate BLACKS Verified 05/25/20 13:43 OUT,DISORIENTED, IN A DAZE peas Allergy Intermediate Gastrointestinal Verified 05/25/20 13:43 Upset povidone-iodine Allergy Intermediate RASH,HIVES Verified 05/25/20 13:43 quetiapine Allergy Intermediate Sleep Verified 05/25/20 13:43 Walking strawberry Allergy Intermediate GI SYMPTOMS Verified 05/25/20 13:43 Iodinated Contrast Media Allergy Mild GI Verified 05/25/20 13:43 SYMPTOMS,TONGUE SWELLED UP shellfish derived Allergy Mild GI SYMPTOMS Verified 05/25/20 13:43 clindamycin Allergy Verified 05/25/20 13:43 Penicillins Allergy Hives Unverified 05/25/20 13:43 codeine AdvReac Intermediate Gastrointestinal Verified 05/25/20 13:43 Upset Consultations 09/16/20 12:54 ED Decision to Admit Stat 05/25/20 14:39 Consult Urology Routine Ordered Studies 05/25/20 11:45 CT abd pelvis wo con Stat Hospital Course (1) Ureterolithiasis: 5mm - patient passed stone on his own, feeling much better this morning Continue Tamsulosin Urology consulted - recommend follow up in 6 months with a KUB (2) Hydronephrosis of left kidney: Despite elevated WBC and glucosuria no current infection suspected however high risk of this given his diabetes. No need for urgent intervention at this time. Consulted urology. (3) Renal colic: Pain resolved this am (4) Attention deficit hyperactivity disorder: Continue Concerta (5) Diabetes mellitus type 2, uncontrolled: HbA1C 12.7. Discussed with patient. He reports that he has frequent hypoglycemia in the afternoon as low as 40s so will hold off on adjusting his regimen. Will refer to endocrinology office for help with his diabetes regimen. (6) Sleep apnea: CPAP HS 19-20 cm H2O (7) Tobacco use disorder: Discussed chewing cessation Declined nicotine replacement products at the current time. (8) Dentalgia: Currently on doxycycline due to concern for dental abscess, none currently suspected. We will continue this during his admission. Encouraged to seek a dental appointment as soon as possible. Total Time Total Time Spent Total Time Spent (In Minutes): greater than 30 minutes Discharge Plan Discharge Items Patient Disposition: Home - Self-Care Reason For Visit: URETEROLITHIASIS Discharge Diagnosis: Ureteral stones, passed Diabetes, uncontrolled Condition on Discharge: Good Activity: Resume your previous activity Non-emergency contact: Primary Care Provider Call non-emergency contact if: you have any medication questions and your symptoms worsen Follow-up/Referrals: Chris Cote MD [Physician] - 06/01/20 12:30 pm (first available, can be with any provider in the office, doctor or PA or [facility]) Chaim Loredo DO [Primary Care Provider] - 06/01/20 9:30 am (one week, need to discuss diabetes management) Diet: Carb Consistent or DM2 and Heart Healthy Addtl Attending Provider Instructions: Medications: Flomax: 0.4mg daily, relaxes urethra/prostate to allow passage of stones, take for next 2-4 weeks as you pass stones Ultram: take as needed for any pain that does not resolve with Tylenol or Ibuprofen Levemir: INCREASE total dose to 30 units morning AND evening, starting this evening take 30 units then take 30 units tomorrow morning follow up closely with PCP Ureteral stones: passed three stones, may have 1-2 more stones but they should pass cleared for discharge by urology Diabetes: very poorly controlled, HbA1c is 12.7% recommend you follow up closely with your PCP to discuss better management recommend follow up with endocrinology as soon as possible follow a diabetic diet, limit complex carbohydrates poorly controlled diabetes puts you at risk for heart attack, stroke, kidney disease, infections Pending Studies at Discharge: Yes Studies:: stone analysis Stand-Alone Forms: My [facility] [employer], Opioid Pain Management, Smoking Cessation Medications and DC Order Prescriptions: New tamsulosin 0.4 mg Capsule 0.4 mg PO QAM 30 Days Qty: 30 RF: 0 tramadol [Ultram] 50 mg tablet 50 mg PO Q8H PRN (Reason: pain) Qty: 14 RF: 0 Levemir FlexTouch U-100 Insuln 100 unit/mL (3 mL) insulin pen 45 unit subcut DAILY Qty: 15 RF: 0 Continued pen needle, diabetic [BD Ultra-Fine Isabela Pen Needle] 32 gauge x 5/32" needle See Rx Instructions .ROUTE .COMPLEX Qty: 100 RF: 5 (DME) blood pressure monitor [Blood Pressure Kit] kit See Dose Instructions .ROUTE .MEDSUPPLY Qty: 1 RF: 0 glipizide 10 mg tablet extended release 24hr 10 mg PO BID Qty: 180 RF: 0 cholecalciferol (vitamin D3) [Vitamin D3] 125 mcg (5,000 unit) tablet 125 mcg PO TIDM Qty: 180 RF: 0 albuterol sulfate 90 mcg/actuation HFA aerosol inhaler 2 puff INHALATION Q4 PRN (Reason: Shortness Of Breath Or Wheezing) Qty: 18 RF: 1 potassium chloride 20 mEq tablet extended release 40 meq PO QAM Qty: 60 RF: 3 (DME) lancets [OneTouch Delica Lancets] 33 gauge misc See Dose Instructions .ROUTE .MEDSUPPLY Qty: 100 RF: 0 atorvastatin 20 mg tablet 20 mg PO HS Qty: 90 RF: 3 carvedilol [Coreg] 25 mg tablet 25 mg PO BID Qty: 180 RF: 3 enalapril maleate [Vasotec] 20 mg tablet 20 mg PO BID Qty: 180 RF: 3 methylphenidate HCl [Concerta] 54 mg tablet extended release 24hr 54 mg PO QAM RF: 0 hydrochlorothiazide 25 mg tablet 25 mg PO QAM Qty: 90 RF: 1 (DME) OneTouch Ultra Blue Test Strip strip See Dose Instructions .ROUTE .MEDSUPPLY Qty: 100 RF: 1 aspirin [Adult Low Dose Aspirin] 81 mg Tablet,Delayed Release (Dr/Ec) 1 tab PO QAM RF: 0 methylphenidate HCl 18 mg tablet extended release 24hr 18 mg PO DAILY@1200 RF: 0 metformin 500 mg tablet 500 mg PO QAM RF: 0 magnesium oxide 400 mg (241.3 mg magnesium) tablet 400 mg PO BID RF: 0 nystatin 100,000 unit/gram cream 1 appln TOP TID PRN (Reason: Skin Irritation) RF: 0 diltiazem HCl 300 mg tablet extended release 24 hr 300 mg PO QAM RF: 0 acetaminophen [Tylenol Extra Strength] 500 mg Tablet 500 mg PO Q6H PRN (Reason: Pain) RF: 0 Discontinued Levemir FlexTouch U-100 Insuln 100 unit/mL (3 mL) insulin pen 45 units SQ QPM Qty: 15 RF: 3 doxycycline hyclate 100 mg tablet 100 mg PO BID Qty: 20 RF: 2 Discharge Orders: Discharge Order (Routine); Ordered 05/26/20 Ordered By: Eduardo Waters/Other Patient Handouts: Kidney Stone (Urine) Admission Data Admit Date/Time: 05/25/20 13:08 Attending Provider: Eduardo Arceo Admit Provider: Edinson Sheth Primary Care Provider: Chaim Loredo Other Providers: Edinson Sheth ; Donaldo Esqueda Other Interventions: Discharge Summary Assessment (RN) Last Done: 05/26/20 09:30 Supervising Physician Co-Signing Physician Notes Patient seen and examined on the day of discharge. I agree with the discharge summary by Elizabeth REAL. I have reviewed the chart including labs, imaging and plans for discharge. 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
[2020-06-01 10:51] LABS: Component 2 DNR; Source BLADDER STONE
== END 2020-05-26 09:52 | disposition home or self-care (01) | DRG 694 ==
LOC: ED 11:03 → SUATTDRO 13:08 → 3E 13:08

== ENCOUNTER 2020-07-31 14:58 | Inpatient (IN) ==
[2020-07-31] MEDS ORDERED: ALBUT/IPRATROP 3MG/0.5MG NEB 3 ML VIAL ONE (15:09)
[2020-07-31] MEDS ORDERED: ALBUT/IPRATROP 3MG/0.5MG NEB 3 ML VIAL INH STA (15:09)
--- NOTE | 2020-07-31 15:15 | Emergency Department Note ---
Impression & Plan Hypoxia, Acute hyperglycemia, SOB (shortness of breath), Elevated troponin, COVID-19 ED Provider Note NAME: DORCAS BAXTER AGE: 55 SEX: M : 1965 ARRIVES VIA: Ambulance INFORMANT: [Patient][ems] ED PROVIDER(S): [Wade Millan MD] CHIEF COMPLAINT: Short of breath HISTORY OF PRESENT ILLNESS: The patient is a 55-year-old male who presents by ambulance for the sudden onset of dyspnea at around 130 today, 1 hour and 45 minutes ago. The patient states that he was vacuuming and suddenly, he was very short of breath. He states his lungs were locked up. He could not get his breath at all. EMS was called. As per EMS, the patient was hypoxic, struggling to breathe. He was not moving any air. He was ashen in color and his O2 saturation was around 79%. The patient was placed on CPAP. He was given IV Solu-Medrol 125 mg, he was given a DuoNeb. Upon ED arrival, the patient feels markedly improved. The patient has been in baseline health, he felt fine earlier today before vacuuming. He denies any chest pain. No fever, increased cough, congestion. He has had no sick contacts, no Covid exposures. REVIEW OF SYSTEMS: See HPI for pertinent positives and negatives. A total of ten systems were reviewed and were otherwise negative. PMHx/PSHx: See Below SOCIAL HISTORY: See Below. PHYSICAL EXAM: GENERAL: Patient is sitting on the stretcher, he seems comfortable. HEENT: No acute trauma, normocephalic atraumatic, mucous membranes moist, no nasal congestion, no scleral icterus. NECK: No stridor, no adenopathy, no meningismus, trachea is midline. LUNGS: No obvious wheezing, no increased respiratory rate, no accessory muscle use, no respiratory distress. HEART: Regular rate and rhythm, equal radial pulses bilaterally. ABDOMEN: Soft, nontender, bowel sounds positive, no hernias, no peritonitis. EXTREMITIES: No cyanosis, mild bilateral pedal edema, full range of motion of all the joints without pain or difficulty, no signs for acute trauma. NEUROLOGIC: Oriented x 3, no acute motor or sensory deficits, no focal weakness. SKIN: No rash, no jaundice, no diaphoresis. DIFFERENTIAL DIAGNOSIS: Reactive airway disease, pneumonia, pneumothorax, COPD, CHF, infections, coronavirus, cardiac ischemia, pulmonary embolism, musculoskeletal, gastrointestinal, as well as other pathologies. EMERGENCY DEPARTMENT COURSE/PROCEDURES: ECG: Indication was shortness of breath. The ECG shows a normal sinus rhythm with some ST depression and T wave flattening in the inferior and lateral leads. There is no ST elevation. The rate is 70. The QTc is 432. There are no PVCs. Compared to an ECG from 10 July 2018, there is no significant change. Continuous Cardiac Monitoring: An order was placed for continuous cardiac monitoring. The monitor shows a rate of 72 with normal sinus rhythm. Critical Care Note: I have personally spent 38 minutes of critical care time in the direct management of this patient. This includes bedside care, interpretation of diagnostic studies, and testing, discussion with consultants, patient, and family members, and other required patient management activities. This 38 minutes is in excess of all separately billable procedures. MEDICAL DECISION MAKING: There is no leukocytosis or worrisome anemia. There is a normal platelet count. No coagulopathy. Glucose is elevated at over 300, no renal failure. LFTs slightly elevated. Patient does have a troponin elevation which could indicate some cardiac ischemia or strain. ECG shows a sinus rhythm with some nonspecific ST change which looks to be chronic. No ST elevation. Coronavirus testing returned positive. Chest film did not show pneumonia or CHF. Respiratory did meet us in the room however, I did not think the patient was in need of BiPAP. Patient did though receive a DuoNeb while here in the ED. He had received one in route and had responded nicely to the neb. He was given oral aspirin because of the troponin elevation. He received 8 units of regular insulin IV because of his high blood sugar. The patient was hypoxic, short of breath. He was ashen in color. He responded to CPAP and a DuoNeb and Solu-Medrol in route. Here, he has done okay. He has not required BiPAP. I do think the patient deserves a hospital stay. He was hypoxic, he was quite short of breath. He has a high glucose, an elevated troponin, he is coronavirus positive with a lot of underlying medical issues. I spoke to the patient, I talked to case management. The on-call hospitalist was consulted. Past Med/Surg History Medical History (Updated 07/31/20 @ 17:25 by Wade Millan MD) Acute left flank pain Asthma Cutaneous candidiasis Diabetes mellitus Leukocytosis Nephrolithiasis Renal colic Surgical History H/O oral surgery Family History (Updated 07/07/20 @ 12:22 by Jinny Copeland) Mother Breast cancer Thyroid cancer Uncle Myocardial infarction Family/Other Myocardial infarction self Father Skin cancer Aunt Skin cancer Diabetes Other No significant family history Denies family history of Ovarian cancer Prostate cancer Colorectal cancer Social History Smoking Status: Never smoker Tobacco Type: Cigarettes Second Hand Exposure: No; Hx Alcohol Use: No Hx Substance Use: No Preferred Language: Armenian Communication Ability: Effective Sequencing Machine Operator Required: No Beliefs That Will Affect Care: None marital status: Current Living Situation: Alone current occupational status: employed and disabled current occupation: Car parts Feels Safe at Home: Yes caffeine: Yes (coffee ) Dental Care, Regularly: No Physical Activity Frequency: Does not Exercise Seatbelt Use: always Sunscreen Use: No Assistive Devices: CPAP Allergies Allergies Allergy/AdvReac Type Severity Reaction Status Date / Time bupropion Allergy Intermediate BLACKS Verified 07/07/20 12:14 OUT,DISORIENTED, IN A DAZE peas Allergy Intermediate Gastrointestinal Verified 05/25/20 13:43 Upset povidone-iodine Allergy Intermediate RASH,HIVES Verified 07/07/20 12:14 quetiapine Allergy Intermediate Sleep Verified 07/07/20 12:14 Walking strawberry Allergy Intermediate GI SYMPTOMS Verified 07/07/20 12:14 Iodinated Contrast Media Allergy Mild GI Verified 07/07/20 12:14 SYMPTOMS,TONGUE SWELLED UP shellfish derived Allergy Mild GI SYMPTOMS Verified 07/07/20 12:14 clindamycin Allergy Verified 07/07/20 12:14 Penicillins Allergy Hives Unverified 07/07/20 12:14 codeine AdvReac Intermediate Gastrointestinal Verified 07/07/20 12:14 Upset Home Meds Home Medications Medication Instructions Recorded Confirmed aspirin [Adult Low Dose Aspirin] 1 tab PO QAM 06/22/18 07/31/20 lancets 33 gauge #100 ea 03/15/19 07/07/20 methylphenidate HCl 54 mg 54 mg PO QAM 06/11/19 07/07/20 tablet,extended release 24 hr acetaminophen [Tylenol Extra 500 mg PO Q6H PRN 03/06/20 07/31/20 Strength] diltiazem HCl 300 mg PO QAM 03/06/20 07/31/20 magnesium oxide 400 mg PO BID 03/06/20 07/07/20 methylphenidate HCl 18 mg PO DAILY@1200 03/06/20 07/31/20 nystatin 1 appln TOP TID PRN 03/06/20 07/07/20 blood sugar diagnostic ea 07/07/20 insulin detemir U-100 100 unit/mL 47 unit SUBCUT HS ml 07/07/20 07/31/20 (3 mL) subcutaneous pen metformin 1,000 mg PO QPM 07/31/20 07/31/20 metformin 500 mg PO QAM 07/31/20 07/31/20 Previous Rx's Medication Instructions Recorded blood pressure monitor #1 ea 06/08/19 enalapril maleate 20 mg tablet 20 mg PO BID #180 tab 06/22/19 glipizide 10 mg tablet, extended 10 mg PO BID #180 tab 04/12/20 release 24 hr cholecalciferol (vitamin D3) 125 125 mcg PO TIDM #180 tab 05/03/20 mcg (5,000 unit) tablet potassium chloride 20 mEq 40 meq PO QAM #60 tab 05/03/20 tablet,extended release hydrochlorothiazide 25 mg tablet 25 mg PO QAM #90 tab 05/24/20 tramadol [Ultram] 50 mg PO Q8H PRN #14 tab 05/26/20 pen needle, diabetic 32 gauge x See Rx Instructions .ROUTE 06/23/20" .COMPLEX #100 unspecified carvedilol 25 mg tablet 25 mg PO BID #180 tab 07/12/20 dapagliflozin 5 mg tablet 5 mg PO DAILY #30 tab 07/21/20 albuterol sulfate 90 mcg/actuation 2 puff INHALATION Q4 PRN #18 gm 07/26/20 aerosol inhaler atorvastatin 20 mg tablet 20 mg PO HS #90 tab 07/26/20 Results & Data (ED) Vital Signs Vital Signs - 24 hr 07/31/20 15:07 07/31/20 15:13 07/31/20 15:16 Temperature 36.8 C Temperature Source Oral Pulse Rate 72 72 Pulse Rate [Right Radial] 69 Pulse Rate from SpO2 Sensor 71 Respiratory Rate 18 24 Respiratory Effort / Characteristics Spontaneous Blood Pressure 133/76 133/76 Blood Pressure Mean 101 95 Pulse Oximetry 92 90 92 Oxygen Delivery Method Room Air Room Air Sepsis Recent Fever Within 48 Hours No Sepsis New/Unexplained Change in Mental Status No Sepsis Action Taken by Nursing No Action Required 07/31/20 15:28 07/31/20 15:30 07/31/20 16:43 Temperature Temperature Source Pulse Rate 68 70 Pulse Rate [Right Radial] Pulse Rate from SpO2 Sensor 69 69 Respiratory Rate Respiratory Effort / Characteristics Blood Pressure 107/64 155/83 H Blood Pressure Mean 85 97 Pulse Oximetry 92 93 94 Oxygen Delivery Method Room Air Sepsis Recent Fever Within 48 Hours Sepsis New/Unexplained Change in Mental Status Sepsis Action Taken by [facility] Medications Current Medication List: was personally reviewed by me Laboratory Data Attestation: I reviewed the patient's lab results. Result diagrams: 07/31/20 15:10 07/31/20 15:10 Lab Results 07/31/20 07/31/20 07/31/20 Range/Units 15:10 15:10 15:10 WBC 10.60 (4.8-10.8) K/uL RBC 4.98 (4.7-6.1) M/uL Hgb 14.1 (14.0-18.0) g/dL Hct 44.2 (42-52) % MCV 88.8 (80-100) fL MCH 28.3 (25-34) pg MCHC 31.9 L (32-36) g/dL RDW Std Deviation 45.4 (36.4-46.3) fL RDW Coeff of Nydia 14.0 (11.5-14.5) % Plt Count 183 (130-400) K/uL MPV 9.7 (7.4-10.4) fL Immature Gran % (Auto) 0.3 % Neut % (Auto) 83.7 % Lymph % (Auto) 8.7 % [place] % (Auto) 5.4 % Eos % (Auto) 1.8 % Baso % (Auto) 0.1 % Neut # (Auto) 8.88 H (1.4-6.5) K/uL Lymph # (Auto) 0.92 L (1.2-3.4) K/uL [place] # (Auto) 0.57 (0.11-0.59) K/uL Eos # (Auto) 0.19 (0-0.5) K/uL Baso # (Auto) 0.01 (0-0.2) K/uL Immature Gran # (Auto) 0.03 H (0.00-0.02) K/uL PT 10.3 (9.0-12.0) Seconds INR 1.0 (0.9-1.1) APTT 24.8 (21.0-31.0) Seconds PTT Ratio 0.9 Sodium 136 (136-145) mmol/L Potassium 5.1 (3.5-5.1) mmol/L Chloride 105 (98-107) mmol/L Carbon Dioxide 29 (21-32) mmol/L Anion Gap 3.0 (3-11) BUN 13 (7-18) mg/dl Creatinine 1.09 (0.6-1.4) mg/dl Est Cr Clr Drug Dosing 133.1 ml/min Est GFR ( Amer) 89.3 Est GFR (Non-Af Amer) 77.1 BUN/Creatinine Ratio 11.7 (10-20) Glucose 317 H* (70-99) mg/dl Calcium 8.7 (8.5-10.1) mg/dl Total Bilirubin 0.4 (0.2-1) mg/dl AST 57 H (15-37) U/L ALT 83 H (12-78) U/L Alkaline Phosphatase 107 (45-117) U/L Troponin I 0.082 H* (0-0.045) ng/ml Total Protein 7.1 (6.4-8.2) gm/dl Albumin 3.3 L (3.4-5.0) gm/dl Globulin 3.8 (2.5-4.0) gm/dl Albumin/Globulin Ratio 0.9 (0.9-2) Beta-Hydroxybutyric Acd 0.60 (0.2-2.81) mg/dl COVID-19 Eval Order SARS-CoV-2, RNA, NAAT (NEGATIVE) 07/31/20 07/31/20 Range/Units 15:10 15:10 WBC (4.8-10.8) K/uL RBC (4.7-6.1) M/uL Hgb (14.0-18.0) g/dL Hct (42-52) % MCV (80-100) fL MCH (25-34) pg MCHC (32-36) g/dL RDW Std Deviation (36.4-46.3) fL RDW Coeff of Nydia (11.5-14.5) % Plt Count (130-400) K/uL MPV (7.4-10.4) fL Immature Gran % (Auto) % Neut % (Auto) % Lymph % (Auto) % [place] % (Auto) % Eos % (Auto) % Baso % (Auto) % Neut # (Auto) (1.4-6.5) K/uL Lymph # (Auto) (1.2-3.4) K/uL [place] # (Auto) (0.11-0.59) K/uL Eos # (Auto) (0-0.5) K/uL Baso # (Auto) (0-0.2) K/uL Immature Gran # (Auto) (0.00-0.02) K/uL PT (9.0-12.0) Seconds INR (0.9-1.1) APTT (21.0-31.0) Seconds PTT Ratio Sodium (136-145) mmol/L Potassium (3.5-5.1) mmol/L Chloride (98-107) mmol/L Carbon Dioxide (21-32) mmol/L Anion Gap (3-11) BUN (7-18) mg/dl Creatinine (0.6-1.4) mg/dl Est Cr Clr Drug Dosing ml/min Est GFR ( Amer) Est GFR (Non-Af Amer) BUN/Creatinine Ratio (10-20) Glucose (70-99) mg/dl Calcium (8.5-10.1) mg/dl Total Bilirubin (0.2-1) mg/dl AST (15-37) U/L ALT (12-78) U/L Alkaline Phosphatase (45-117) U/L Troponin I (0-0.045) ng/ml Total Protein (6.4-8.2) gm/dl Albumin (3.4-5.0) gm/dl Globulin (2.5-4.0) gm/dl Albumin/Globulin Ratio (0.9-2) Beta-Hydroxybutyric Acd (0.2-2.81) mg/dl COVID-19 Eval Order Covid19 [facility]Now [facility] SARS-CoV-2, RNA, NAAT POSITIVE A* (NEGATIVE) Administered Medications Discontinued Medications Albuterol (Albut/Ipratrop 3mg/0.5mg Neb 3 Ml Vial) Confirm Administered Dose 3 m l .ROUTE .STK-MED ONE Stop: 07/31/20 15:10 Last Admin: 07/31/20 15:52 Dose: Not Given Documented by: [id number] Albuterol (Albut/Ipratrop 3mg/0.5mg Neb 3 Ml Vial) 3 ml INH NOW STA Stop: 07/31/20 15:10 Last Admin: 07/31/20 15:12 Dose: 3 ml Documented by: [id number] Aspirin (Aspirin Chew 324 Mg) 324 mg PO NOW STA Stop: 07/31/20 16:13 Last Admin: 07/31/20 16:30 Dose: 324 mg Documented by: [id number] Insulin Human Regular (Novolin-R Insulin Per Unit Charge) 8 units IV NOW STA Stop: 07/31/20 16:13 Last Admin: 07/31/20 16:29 Dose: 8 units Documented by: [id number] Cosigned by: [id number] Imaging Data Radiologist's Impression: XR chest 1V portable CLINICAL HISTORY: SOB COMPARISON STUDY: 07/10/2018 FINDINGS: The heart is the upper limits of normal in size. There is no failure. There is no focal pulmonary consolidation. There are no pleural effusions.[ IMPRESSION: No active disease in the chest. Discharge Plan Visit Data Chief Complaint: Shortness of Breath/Dyspnea ED Provider: Wade Millan Discharge Problem: Hypoxia, Acute hyperglycemia, SOB (shortness of breath), Elevated troponin, COVID-19 Patient Disposition: Admitted As Inpatient Condition: Fair Forms Stand Alone Forms: My [facility] Prescriptions Prescriptions: No Action glipizide 10 mg tablet extended release 24hr 10 mg PO BID Qty: 180 RF: 0 potassium chloride 20 mEq tablet extended release 40 meq PO QAM Qty: 60 RF: 3 carvedilol [Coreg] 25 mg tablet 25 mg PO BID Qty: 180 RF: 3 Farxiga 5 mg tablet 5 mg PO DAILY Qty: 30 RF: 2 albuterol sulfate 90 mcg/actuation HFA aerosol inhaler 2 puff INHALATION Q4 PRN (Reason: Shortness Of Breath Or Wheezing) Qty: 18 RF: 1 atorvastatin 20 mg tablet 20 mg PO HS Qty: 90 RF: 3 enalapril maleate [Vasotec] 20 mg tablet 20 mg PO BID Qty: 180 RF: 3 methylphenidate HCl [Concerta] 54 mg tablet extended release 24hr 54 mg PO QAM RF: 0 hydrochlorothiazide 25 mg tablet 25 mg PO QAM Qty: 90 RF: 1 Levemir FlexTouch U-100 Insuln 100 unit/mL (3 mL) insulin pen 47 unit subcut HS RF: 0 aspirin [Adult Low Dose Aspirin] 81 mg Tablet,Delayed Release (Dr/Ec) 1 tab PO QAM RF: 0 methylphenidate HCl 18 mg tablet extended release 24hr 18 mg PO DAILY@1200 RF: 0 magnesium oxide 400 mg (241.3 mg magnesium) tablet 400 mg PO BID RF: 0 nystatin 100,000 unit/gram cream 1 appln TOP TID PRN (Reason: Skin Irritation) RF: 0 diltiazem HCl 300 mg tablet extended release 24 hr 300 mg PO QAM RF: 0 acetaminophen [Tylenol Extra Strength] 500 mg Tablet 500 mg PO Q6H PRN (Reason: Pain) RF: 0 metformin 500 mg Tablet 500 mg PO QAM RF: 0 metformin 1,000 mg Tablet 1,000 mg PO QPM RF: 0 cholecalciferol (vitamin D3) [Vitamin D3] 125 mcg (5,000 unit) tablet 125 mcg PO QAM RF: 0 Dulera 200-5 mcg/actuation HFA aerosol inhaler 2 puff INHALATION BID RF: 0 Referrals Referrals: Chaim Loredo DO [Primary Care Provider] -
[2020-07-31 15:28] LABS: Basophils # (auto) 0.01 K/uL (0-0.2); Basophils % (auto) 0.1 %; Eosinophils # (auto) 0.19 K/uL (0-0.5); Eosinophils % (auto) 1.8 %; Hematocrit (blood only) 44.2 % (42-52); Hemoglobin 14.1 g/dL (14.0-18.0); Immature Granulocytes # (auto) 0.03 K/uL (0.00-0.02); Immature Granulocytes % (auto) 0.3 %; Lymphocytes # (auto) 0.92 K/uL (1.2-3.4); Lymphocytes % (auto) 8.7 %; Mean Corpuscular Hemoglobin 28.3 pg (25-34); Mean Corpuscular Hgb Conc 31.9 g/dL (32-36); Mean Corpuscular Volume 88.8 fL (80-100); Mean Platelet Volume 9.7 fL (7.4-10.4); Monocytes # (auto) 0.57 K/uL (0.11-0.59); Monocytes % (auto) 5.4 %; Neutrophils # (auto) 8.88 K/uL (1.4-6.5); Neutrophils % (auto) 83.7 %; Platelet Count 183 K/uL (130-400); RDW Standard Deviation 45.4 fL (36.4-46.3); Red Blood Count 4.98 M/uL (4.7-6.1)
[2020-07-31 15:51] LABS: Partial Thromboplastin Ratio 0.9; Partial Thromboplastin Time 24.8 Seconds (21.0-31.0); Prothrombin Time 10.3 Seconds (9.0-12.0)
[2020-07-31 16:01] LABS: Albumin Globulin Ratio 0.9 (0.9-2); Albumin Level 3.3 gm/dl (3.4-5.0); BUN Creatinine Ratio 11.7 (10-20); Bilirubin,Total 0.4 mg/dl (0.2-1); Calcium 8.7 mg/dl (8.5-10.1); Creatinine Clr Calc Pharmacy 133.1 ml/min; Est GFR (African American) 89.3; Est GFR (Non-African American) 77.1; Globulin 3.8 gm/dl (2.5-4.0); Potassium 5.1 mmol/L (3.5-5.1); Total Protein 7.1 gm/dl (6.4-8.2); Troponin I 0.082 ng/ml (0-0.045)
[2020-07-31] MEDS ORDERED: NovoLIN-R INSULIN PER UNIT CHARGE IV STA (16:12)
[2020-07-31] MEDS ORDERED: ASPIRIN CHEW 324 MG PO STA (16:12)
[2020-07-31 16:13] LABS: Beta-Hydroxybutyrate 0.6 mg/dl (0.2-2.81)
--- NOTE | 2020-07-31 16:21 | XRay Report ---
XR chest 1V portable CLINICAL HISTORY: SOB COMPARISON STUDY: 07/10/2018 FINDINGS: The heart is the upper limits of normal in size. There is no failure. There is no focal pul monary consolidation. There are no pleural effusions.[ IMPRESSION: No active disease in the chest. ACT 112: Negative or not required by law. Electronically signed by: Jose F Arroyo M.D. 07/31/2020 4:19 PM
[2020-07-31] MEDS ORDERED: ONDANSETRON INJ 2 MG/ML 2 ML VIAL IV PRN (18:23)
[2020-07-31] MEDS ORDERED: traMADol HCL 50 MG TABLET PO PRN (18:23)
[2020-07-31] MEDS ORDERED: GLUCAGON FOR INJ 1 MG VIAL SQ PRN (18:23)
[2020-07-31] MEDS ORDERED: CARBOHYDRATES FOR HYPOGLYCEMIA PO PRN (18:23)
[2020-07-31] MEDS ORDERED: ACETAMINOPHEN 500 MG TAB PO PRN (18:23)
[2020-07-31] MEDS ORDERED: GLUCOSE 10 TABS/TUBE PO PRN (18:23)
[2020-07-31] MEDS ORDERED: DEXTROSE 50% 50 ML SYRINGE IV PRN (18:23)
[2020-07-31] MEDS ORDERED: GLUCOSE 40% GEL 15 GM TUBE PO PRN (18:23)
[2020-07-31] MEDS ORDERED: PHARMACY GLYCEMIC MGMT CONSULT PRN (18:53)
--- NOTE | 2020-07-31 18:54 | History & Physical Report ---
Date of Service July 31, 2020 Assessment & Plan (1) Asthma exacerbation: History sounds very convincing for an acute bronchospastic episode where he had an insulting event, acute shortness of breath, and resolution with treatment. - Continue low-dose steroid burst to avoid hyperglycemia. - Hold abx given clear CXR - Continue home Dulera - Albuterol inhalers standing and PRN - Monitor overnight (2) COVID-19: Covid test positive on admission. Prior to acute shortness of breath, he had no symptoms including any more shortness of breath than usual. No cough, no fevers, no diarrhea. - Given he is now on room air, he does not meet criteria for dexamethasone, remdesivir, or convalescent plasma. - Monitor - Supportive care (3) Elevated troponin: Troponin mildly elevated on admission at 0.08. No chest pain. EKG stable from priors. Has reported CAD, though cardiology makes note that he has no imaging or cath to suggest blockage. - Trend troponins & EKGs (4) Uncontrolled type 2 diabetes mellitus, with long-term current use of insulin: A1c was 12.7% in 05/2020. He reports his last time checking his blood sugars was "about a week ago" and does not have explanation for why he has not recently checked. - Hold home oral meds - Lowered home long-acting to 40 units for smaller hospital meals compared to at home. - Sliding scale insulin - Will get consumer educator to see him if she makes Covid-visits; will assess tomorrow (5) Hypertension: BP in the ED is 145/90. - Continue home carvedilol, diltiazem, enalapril, and HCTZ (6) Sleep apnea: - BiPap HS (7) Chronic diastolic congestive heart failure: Has done well with low-salt diet and HCTZ. - Continue HCTZ - Presently appears euvolemic. Will monitor while on steroid. (8) Attention deficit hyperactivity disorder: If he can bring in home supply of methylphenidate, he can use this. - Advise patient (9) DVT prophylaxis: Lovenox 40 mg SQ daily Admission and Anticipated Discharge Date Admission Date: July 31, 2020 History of Present Illness Primary Care Provider: Chaim Loredo, 55yo M w/ hx of asthma, DM, HTN, obesity who presents with Covid pneumonia. He was vacuuming his house today. He has significant allergies, including to his dog's dander, and he reports that had acute-onset shortness of breath as he was vacuuming. He uses his albuterol inhaler 2-3 times every day, but his shortness of breath did not improve with albuterol administration. He reports that he called EMS. EMS found his O2 sat to be 70%, and he was given a DuoNeb and methylprednisolone by EMS. In the ED, he had increased work of breathing and received another DuoNeb which resolved his shortness of breath. On my interview, he is breathing comfortably on room air and says he feels at his baseline. At no time during this episode did he feel like his chest was hurting or having any chest pain, nausea, vomiting, lightheadedness, or other concerning symptoms. Allergies Allergy/AdvReac Type Severity Reaction Status Date / Time bupropion Allergy Intermediate BLACKS Verified 07/31/20 17:33 OUT,DISORIENTED, IN A DAZE peas Allergy Intermediate Gastrointestinal Verified 07/31/20 17:33 Upset povidone-iodine Allergy Intermediate RASH,HIVES Verified 07/31/20 17:34 quetiapine Allergy Intermediate Sleep Verified 07/31/20 17:34 Walking strawberry Allergy Intermediate GI SYMPTOMS Verified 07/31/20 17:34 Iodinated Contrast Media Allergy Mild GI Verified 07/31/20 17:34 SYMPTOMS,TONGUE SWELLED UP shellfish derived Allergy Mild GI SYMPTOMS Verified 07/31/20 17:35 clindamycin Allergy Verified 07/31/20 17:35 Penicillins Allergy Hives Unverified 07/31/20 17:35 codeine AdvReac Intermediate Gastrointestinal Verified 07/31/20 17:35 Upset Home Medications Medication Instructions Recorded Confirmed Type aspirin [Adult Low Dose Aspirin] 1 tab PO QAM 06/22/18 07/31/20 History methylphenidate HCl 54 mg 54 mg PO QAM 06/11/19 07/31/20 History tablet,extended release 24 hr enalapril maleate 20 mg tablet 20 mg PO BID #180 tab 06/22/19 07/31/20 Rx acetaminophen [Tylenol Extra 500 mg PO Q6H PRN 03/06/20 07/31/20 History Strength] diltiazem HCl 300 mg PO QAM 03/06/20 07/31/20 History magnesium oxide 400 mg PO BID 03/06/20 07/31/20 History methylphenidate HCl 18 mg PO DAILY@1200 03/06/20 07/31/20 History nystatin 1 appln TOP TID PRN 03/06/20 07/31/20 History glipizide 10 mg tablet, extended 10 mg PO BID #180 tab 04/12/20 07/31/20 Rx release 24 hr potassium chloride 20 mEq 40 meq PO QAM #60 tab 05/03/20 07/31/20 Rx tablet,extended release hydrochlorothiazide 25 mg tablet 25 mg PO QAM #90 tab 05/24/20 07/31/20 Rx insulin detemir U-100 100 unit/mL 47 unit SUBCUT HS ml 07/07/20 07/31/20 History (3 mL) subcutaneous pen carvedilol 25 mg tablet 25 mg PO BID #180 tab 07/12/20 07/31/20 Rx dapagliflozin 5 mg tablet 5 mg PO DAILY #30 tab 07/21/20 07/31/20 Rx albuterol sulfate 90 mcg/actuation 2 puff INHALATION Q4 PRN #18 gm 07/26/20 07/31/20 Rx aerosol inhaler atorvastatin 20 mg tablet 20 mg PO HS #90 tab 07/26/20 07/31/20 Rx cholecalciferol (vitamin D3) 125 mcg PO QAM 07/31/20 07/31/20 History [Vitamin D3] enalapril maleate 20 mg PO BID 07/31/20 07/31/20 History metformin 1,000 mg PO QPM 07/31/20 07/31/20 History metformin 500 mg PO QAM 07/31/20 07/31/20 History mometasone-formoterol [Dulera] 2 puff INHALATION BID 07/31/20 07/31/20 History tamsulosin 0.4 mg PO DAILY PRN 07/31/20 07/31/20 History Past Med/Surg History Medical History Acute left flank pain Asthma Cutaneous candidiasis Diabetes mellitus Leukocytosis Nephrolithiasis Renal colic Surgical History H/O oral surgery Family History Mother Breast cancer Thyroid cancer Uncle Myocardial infarction Family/Other Myocardial infarction self Father Skin cancer Aunt Skin cancer Diabetes Other No significant family history Denies family history of Ovarian cancer Prostate cancer Colorectal cancer Social History Smoking Status: Never smoker Tobacco Type: Cigarettes Second Hand Exposure: No; Do You Dip or Chew Tobacco: Yes; Hx Alcohol Use: No Hx Substance Use: No Preferred Language: Indonesian Communication Ability: Effective Safety Investigator Required: No Beliefs That Will Affect Care: None marital status: Current Living Situation: Alone current occupational status: employed and disabled current occupation: Car parts Other Information That Helps Us Care for You: No Feels Safe at Home: Yes Safety Concerns: Feels Safe At This Time caffeine: Yes (coffee ) Dental Care, Regularly: No Physical Activity Frequency: Does not Exercise Seatbelt Use: always Sunscreen Use: No Assistive Devices: BiPap Review of Systems Review of Systems: All systems reviewed & are unremarkable except as noted in HPI & below Physical Exam Constitutional: WD/WN, vitals as above + morbidly obese; no acute distress Eyes: EOM intact bilaterally; no conjunctival abnormality ENMT: external ear and nose normal, oropharynx normal Neck: trachea midline, no thyromegaly normal visual inspection Respiratory: no respiratory distress and no labored breathing Auscultation: + wheezes (Mild); no crackles Cardiovascular: RRR, no murmur, no edema Gastrointestinal (Abdomen): Inspection/Auscultation: abdomen normal to inspection; abdomen not distended Musculoskeletal: no cyanosis or clubbing, extremities motor strength 5/5 Skin: no rashes, warm and dry Neurologic: moves all extremities and awake Psychiatric: Orientation: alert, oriented to person and cooperative Results & Data Results & Data ([facility]) Vital Signs (Past 12 Hours) Vital Signs Temp Pulse Pulse Resp BP Pulse Ox 07/31/20 17:30 69 22 144/87 H 94 07/31/20 17:03 78 07/31/20 16:43 70 155/83 H 94 07/31/20 15:30 68 107/64 93 07/31/20 15:28 92 07/31/20 15:16 36.8 C 72 24 133/76 92 07/31/20 15:13 69 18 90 07/31/20 15:07 72 133/76 92 Code Status & VTE Plan VTE Prophylaxis Plan VTE Prophylaxis will be ordered: Yes PG Care Time/CCT Total # of Minutes Spent Total Time Spent with Patient: Total time spent is greater than 50% in coordination of care (as documented) at patient's floor/unit and/or counseling patient: Coding Level of Care Code 30188 Initial Inpt Care Lvl 3 Diagnoses Asthma exacerbation J45.901 COVID-19 U07.1 Elevated troponin R77.8 Uncontrolled type 2 diabetes mellitus, with long-term current use of insulin E11.65; Z79.4 Hypertension I10 Sleep apnea G47.30 Chronic diastolic congestive heart failure I50.32 Attention deficit hyperactivity disorder F90.9 DVT prophylaxis Z29.9
[2020-07-31] MEDS ORDERED: ALBUTEROL HFA 8 GM INHALER INH SCH ×2 (19:00→20:00)
[2020-07-31] MEDS ORDERED: ALBUT/IPRATROP 3MG/0.5MG NEB 3 ML VIAL NEB SCH (19:00)
[2020-07-31] MEDS ORDERED: IPRATROPIUM BROMIDE HFA INHALER INH SCH (19:00)
[2020-07-31] MEDS ORDERED: COUGH DROP (SUGAR FREE) LOZ 24 LOZ/1 BOX BUCCAL STA (19:45)
[2020-07-31] MEDS ORDERED: ENOXAPARIN INJ 40 MG/0.4 ML SYR SQ SCH (20:00)
[2020-07-31] MEDS: carvediloL 25 MG TAB PO SCH (20:25)
[2020-07-31] MEDS: ENALAPRIL MALEATE 10 MG TAB PO SCH (20:25)
[2020-07-31] MEDS: INSULIN ASPART 100 UNITS/ML 3 ML PEN SC SCH ×2 (20:27→22:45)
[2020-07-31] MEDS ORDERED: IPRATROPIUM BROMIDE HFA INHALER INH PRN (20:51)
[2020-07-31] MEDS ORDERED: ALBUTEROL HFA 8 GM INHALER INH PRN (20:51)
[2020-07-31] MEDS ORDERED: ATORVASTATIN 20 MG TAB PO SCH (21:00)
[2020-07-31] MEDS ORDERED: INSULIN DETEMIR FLEXPEN/FLEX TOUCH 100 UNITS/ML 3ML SQ SCH (21:00)
[2020-08-01] MEDS: INSULIN ASPART 100 UNITS/ML 3 ML PEN SC SCH ×4 (00:14→12:25)
[2020-08-01 07:24] LABS: Hematocrit (blood only) 42.1 % (42-52); Hemoglobin 13.7 g/dL (14.0-18.0); Mean Corpuscular Hemoglobin 28.2 pg (25-34); Mean Corpuscular Hgb Conc 32.5 g/dL (32-36); Mean Corpuscular Volume 86.8 fL (80-100); Mean Platelet Volume 10.4 fL (7.4-10.4); Platelet Count 176 K/uL (130-400); RDW Coefficient of Variation 13.9 % (11.5-14.5); RDW Standard Deviation 44.4 fL (36.4-46.3); Red Blood Count 4.85 M/uL (4.7-6.1)
[2020-08-01 07:57] LABS: BUN Creatinine Ratio 20.3 (10-20); Calcium 8.7 mg/dl (8.5-10.1); Est GFR (African American) 113.7; Est GFR (Non-African American) 98.1; Magnesium 1.8 mg/dl (1.8-2.4); Potassium 3.8 mmol/L (3.5-5.1); Troponin I 0.108 ng/ml (0-0.045)
[2020-08-01] MEDS ORDERED: PNEUMOCOCCAL Polysaccharide Vaccine 25mcg/0.5mL vial/Syr IM ONE (08:00)
[2020-08-01] MEDS: ENALAPRIL MALEATE 10 MG TAB PO SCH (08:50)
[2020-08-01] MEDS: carvediloL 25 MG TAB PO SCH (08:50)
[2020-08-01] MEDS ORDERED: ASPIRIN 81 MG ECTAB PO SCH (09:00)
[2020-08-01] MEDS ORDERED: INSULIN HUMAN NPH SC ONE ×3 (09:00→17:00)
[2020-08-01] MEDS ORDERED: dilTIAZem HCL 300 MG CAPCR PO SCH (09:00)
[2020-08-01] MEDS ORDERED: hydroCHLOROthiazide 25 MG TAB PO SCH (09:00)
[2020-08-01] MEDS ORDERED: predniSONE 20 MG TAB PO SCH (09:00)
--- NOTE | 2020-08-01 09:15 | Pharmacy Report ---
Glycemic Control Consultation - Date of Service August 01, 2020 - Scope Scope: Glycemic Pharmacist consulted for glycemic control and to write orders per [facility] inpatient glycemic control protocol. - Objective Weight: 172 kg Accuchecks BSG (last 24hrs): 07/31/20 07/31/20 07/31/20 15:10 17:31 18:47 Glucose 317 H* POC Glucose 146 H 202 H 07/31/20 07/31/20 07/31/20 20:21 20:23 21:58 Glucose POC Glucose 324 H* 318 H* 301 H* 08/01/20 08/01/20 08/01/20 00:01 04:02 05:42 Glucose 236 H POC Glucose 276 H 243 H 08/01/20 07:12 Glucose POC Glucose 223 H Laboratory Data (last 24hrs): 07/31/20 08/01/20 15:10 05:42 Potassium 5.1 3.8 D Carbon Dioxide 29 26 Anion Gap 3.0 6.0 Creatinine 1.09 0.88 Est Cr Clr Drug Dosing 133.1 166.0 Beta-Hydroxybutyric Acd 0.60 - Recent Pertinent Medications Outpatient Anti-diabetic Regimen: * Levemir 47 units SC HS * Metformin 500 mg PO w/ breakfast, 1000 mg PO w/ evening meal * Glipizide ER 10 mg PO BID * Recently started on Farxiga 5 mg PO daily (July 2020) * A1c = 12.7 % (05/26/20) * Patient is followed by [facility] - Assessment & Plan Assessment & Plan: ASSESSMENT: * PS is a 55 year old male admitted on 07/31 with acute asthma exacerbation possibly secondary to COVID-19 pneumonia vs. bronchospastic episode * BSGs very poorly controlled last evening - 146, 202, 318, 276, and 243 mg/dL * Patient received 87 units of insulin yesterday while inpatient (40 units of basal, 39 units of SC bolus, and 8 units of IV = 87 units) * Fasting BSG this morning of 223 mg/dL * Will plan to increase basal insulin to match home dose of 47 units SC HS * Patient ordered prednisone 20 mg daily - will order 25 units of NPH SC daily to be given with prednisone + tighten carb ratio PLAN FOR INPATIENT GLYCEMIC CONTROL: * Holding outpatient oral diabetes medications * Basal insulin - increase Levemir + add NPH * Levemir 47 units SC HS * NPH 25 units (0.2 unit/kg of adjusted body weight) SC daily with prednisone * NPH scale with dinner (to provide up to 10 additional units) * Bolus insulin - tighten Novolog parameters * NovoLog per scale ACHS or Q6hrs while NPO * Goal Range: Low 110 mg/dL - High 140 mg/dL * Correction Factor: 12 mg/dL/unit * Nutritional / Prandial insulin per carb ratio of 1 unit per 4 grams CHO consumed * Please note that the plan above was derived based on current level of insulin resistance and hospital stress. These recommendations are appropriate for inpatient admission only. Plan of care upon discharge will need to be reassessed to avoid potential outpatient hypo/hyperglycemia. Thank you.
--- NOTE | 2020-08-01 15:29 | Discharge Summary ---
Date of Service August 01, 2020 Admission HPI Per Admitting Provider 55yo M w/ hx of asthma, DM, HTN, obesity who presents with Covid pneumonia. He was vacuuming his house today. He has significant allergies, including to his dog's dander, and he reports that had acute-onset shortness of breath as he was vacuuming. He uses his albuterol inhaler 2-3 times every day, but his shortness of breath did not improve with albuterol administration. He reports that he called EMS. EMS found his O2 sat to be 70%, and he was given a DuoNeb and methylprednisolone by EMS. In the ED, he had increased work of breathing and received another DuoNeb which resolved his shortness of breath. On my interview, he is breathing comfortably on room air and says he feels at his baseline. At no time during this episode did he feel like his chest was hurting or having any chest pain, nausea, vomiting, lightheadedness, or other concerning symptoms. Principal Diagnosis Bronchospasm/asthma exacerbation Discharge Exam Constitutional WD/WN, vitals as above + morbidly obese; no acute distress Eyes EOM intact bilaterally; no conjunctival abnormality ENMT external ear and nose normal, oropharynx normal Neck trachea midline, no thyromegaly normal visual inspection Respiratory normal respiratory effort, lungs clear to auscultation no respiratory distress and no labored breathing Auscultation: + wheezes (Mild); no crackles Cardiovascular RRR, no murmur, no edema Gastrointestinal (Abdomen) Inspection/Auscultation: abdomen normal to inspection; abdomen not distended Musculoskeletal no cyanosis or clubbing, extremities motor strength 5/5 Skin no rashes, warm and dry Neurologic moves all extremities and awake Psychiatric Orientation: alert, oriented to person and cooperative Discharge Data Allergies Allergy/AdvReac Type Severity Reaction Status Date / Time bupropion Allergy Intermediate BLACKS Verified 07/31/20 17:33 OUT,DISORIENTED, IN A DAZE peas Allergy Intermediate Gastrointestinal Verified 07/31/20 17:33 Upset povidone-iodine Allergy Intermediate RASH,HIVES Verified 07/31/20 17:34 quetiapine Allergy Intermediate Sleep Verified 07/31/20 17:34 Walking strawberry Allergy Intermediate GI SYMPTOMS Verified 07/31/20 17:34 Iodinated Contrast Media Allergy Mild GI Verified 07/31/20 17:34 SYMPTOMS,TONGUE SWELLED UP shellfish derived Allergy Mild GI SYMPTOMS Verified 07/31/20 17:35 clindamycin Allergy Verified 07/31/20 17:35 Penicillins Allergy Hives Unverified 07/31/20 17:35 codeine AdvReac Intermediate Gastrointestinal Verified 07/31/20 17:35 Upset Consultations 07/31/20 16:19 ED Decision to Admit Stat Hospital Course (1) Asthma exacerbation: History sounds very convincing for an acute bronchospastic episode where he had an insulting event, acute shortness of breath, and resolution with treatment. - Hold abx given clear CXR - Continue home Dulera - Monitor overnight - Did well. Sent home on short steroid burst. Refilled V entolin. Discussed ways to avoid allergy attacks from his dog. (2) COVID-19: Covid test positive on admission. Prior to acute shortness of breath, he had no symptoms including any more shortness of breath than usual. No cough, no fevers, no diarrhea. - Given he is now on room air, he does not meet criteria for dexamethasone, remdesivir, or convalescent plasma. - Monitor - Supportive care (3) Elevated troponin: Troponin mildly elevated on admission at 0.08. No chest pain. EKG stable from priors. Has reported CAD, though cardiology makes note that he has no imaging or cath to suggest blockage. - Trend troponins & EKGs - Troponin peaked at 0.20 without any chest pain. Can follow up as outpatient with Dr. Gipson. (4) Uncontrolled type 2 diabetes mellitus, with long-term current use of insulin: A1c was 12.7% in 05/2020. He reports his last time checking his blood sugars was "about a week ago" and does not have explanation for why he has not recently checked. - Hold home oral meds - Lowered home long-acting to 40 units for smaller hospital meals compared to at home. - Sliding scale insulin - Asked him to closely monitor his sugars on steroids for the next 3 days. (5) Hypertension: BP in the ED is 145/90. - Continue home carvedilol, diltiazem, enalapril, and HCTZ (6) Sleep apnea: - BiPap HS (7) Chronic diastolic congestive heart failure: Has done well with low-salt diet and HCTZ. - Continue HCTZ - Presently appears euvolemic. Will monitor while on steroid. (8) Attention deficit hyperactivity disorder: If he can bring in home supply of methylphenidate, he can use this. - Advise patient (9) DVT prophylaxis: Lovenox 40 mg SQ daily Total Time Total Time Spent Total Time Spent (In Minutes): 35 Discharge Plan Discharge Items Patient Disposition: Home - Self-Care Reason For Visit: ASTHMA EXACERBATION, COVID Discharge Diagnosis: Bronchospasm/asthma exacerbation Condition on Discharge: Good Activity: Resume your previous activity Non-emergency contact: Primary Care Provider Call non-emergency contact if: your symptoms worsen and your temperature is above 101 Follow-up/Referrals: Evaristo Gipson MD [Physician] - 08/02/20 3:00 pm (Follow up appointment scheduled with Ruel Alvarado PA-C on Saturday08/02/2020 at 3:00 pm. Please arrive to the office 15 minutes early for your appointment. If you are unable to keep this appointment, please call the office to reschedule at [phone].) Chaim Loredo DO [Primary Care Provider] - 08/09/20 1:30 pm (Please follow up with Dr. Loredo on Saturday08/09/2020 at 1:30 pm. Please arrive to the office 15 minutes early for your appointment. If you are unable to keep this appointment, please call the office to reschedule at [phone]. ) Diet: Carb Consistent or DM2 Addtl Attending Provider Instructions: Mr. Mitchell, You were admitted with shortness of breath after vacuuming which seemed to cause an acute asthma exacerbation or bronchospasm. Luckily, you are feeling well at this point. We are going to send you home a few extra days of steroids and then follow up with your PCP to make sure you are doing well. If possible, try to wear a mask with vacuuming to avoid having this happen again. You also had some stress on the heart from the breathing issue. Luckily the lab testing we did showed this was very, very mild. Please follow up with Dr. Gipson in his office in 2-3 weeks to be sure you are doing well and to discuss if any further testing needs to be done. Because steroids can increase your blood sugar, please check your blood sugar more closely over the next 3 days. Please call Eliz Shan if the sugars are consistently over 300 to see if you need to temporarily adjust your insulin. Pending Studies at Discharge: No Stand-Alone Forms: My [facility], Smoking Cessation Medications and DC Order Prescriptions: New prednisone 20 mg Tablet 20 mg PO DAILY Qty: 3 RF: 0 Continued glipizide 10 mg tablet extended release 24hr 10 mg PO BID Qty: 180 RF: 0 potassium chloride 20 mEq tablet extended release 40 meq PO QAM Qty: 60 RF: 3 carvedilol [Coreg] 25 mg tablet 25 mg PO BID Qty: 180 RF: 3 Farxiga 5 mg tablet 5 mg PO DAILY Qty: 30 RF: 2 atorvastatin 20 mg tablet 20 mg PO HS Qty: 90 RF: 3 enalapril maleate [Vasotec] 20 mg tablet 20 mg PO BID Qty: 180 RF: 3 methylphenidate HCl [Concerta] 54 mg tablet extended release 24hr 54 mg PO QAM RF: 0 hydrochlorothiazide 25 mg tablet 25 mg PO QAM Qty: 90 RF: 1 Levemir FlexTouch U-100 Insuln 100 unit/mL (3 mL) insulin pen 47 unit subcut HS RF: 0 aspirin [Adult Low Dose Aspirin] 81 mg Tablet,Delayed Release (Dr/Ec) 1 tab PO QAM RF: 0 methylphenidate HCl 18 mg tablet extended release 24hr 18 mg PO DAILY@1200 RF: 0 magnesium oxide 400 mg (241.3 mg magnesium) tablet 400 mg PO BID RF: 0 nystatin 100,000 unit/gram cream 1 appln TOP TID PRN (Reason: Skin Irritation) RF: 0 diltiazem HCl 300 mg tablet extended release 24 hr 300 mg PO QAM RF: 0 acetaminophen [Tylenol Extra Strength] 500 mg Tablet 500 mg PO Q6H PRN (Reason: Pain) RF: 0 metformin 500 mg Tablet 500 mg PO QAM RF: 0 metformin 1,000 mg Tablet 1,000 mg PO QPM RF: 0 cholecalciferol (vitamin D3) [Vitamin D3] 125 mcg (5,000 unit) tablet 125 mcg PO QAM RF: 0 Dulera 200-5 mcg/actuation HFA aerosol inhaler 2 puff INHALATION BID RF: 0 tamsulosin 0.4 mg capsule 0.4 mg PO DAILY PRN (Reason: Analgesia) RF: 0 enalapril maleate 20 mg tablet 20 mg PO BID RF: 0 albuterol sulfate 90 mcg/actuation HFA aerosol inhaler 2 puff INHALATION Q4 PRN (Reason: Shortness Of Breath Or Wheezing) Qty: 18 RF: 1 Discharge Orders: Discharge Order (Routine); Ordered 08/01/20 Ordered By: Sergio Cline Admission Data Admit Date/Time: 07/31/20 17:00 Attending Provider: Sergio Cline Admit Provider: Sergio Cline Primary Care Provider: Chaim Loredo Other Providers: Sergio Cline Other Interventions: Discharge Summary Assessment (RN) Last Done: 08/01/20 12:31 Coding Level of Care Code D/C Day Management >30 mins Diagnoses Asthma exacerbation J45.901 COVID-19 U07.1 Elevated troponin R77.8 Uncontrolled type 2 diabetes mellitus, with long-term current use of insulin E11.65; Z79.4 Hypertension I10 Sleep apnea G47.30 Chronic diastolic congestive heart failure I50.32 Attention deficit hyperactivity disorder F90.9 DVT prophylaxis Z29.9
[2020-08-01] MEDS ORDERED: INSULIN DETEMIR FLEXPEN/FLEX TOUCH 100 UNITS/ML 3ML SQ SCH (21:00)
--- NOTE | 2020-08-01 21:22 | Electrocardiogram Report ---
Test Reason : Blood Pressure : / mmHG Vent. Rate : 070 BPM Atrial Rate : 070 BPM P-R Int : 190 ms QRS Dur : 108 ms QT Int : 400 ms P-R-T Axes : 046 -83 -33 degrees QTc Int : 432 ms Normal sinus rhythm Left axis deviation Nonspecific ST and T wave abnormality Abnormal ECG When compared with ECG of 10-JUL-2018 21:23, No significant change Confirmed by Evaristo Gipson ([id number]) on 08/01/2020 9:22:00 PM Referred By: REFERRED SELF Confirmed By:Evaristo Gipson
== END 2020-08-01 13:50 | disposition home or self-care (01) | DRG 177 ==
LOC: ED 14:58 → 2S 17:00